=== PATIENT | female | born 1970 | race Caucasian/White ===

== ENCOUNTER 2021-05-23 15:26 | Outpatient (CLI) | payer SELFPAY ==
--- NOTE | 2021-05-23 15:34 | XR_ITS ---
WS: [id number] Exam: XR chest 2V* [id number] Date/Time of Exam: 05/23/2021 3:34 PM Reason For Exam: COUGHING Comparison 06/20/2015. Findings: The lungs are clear and fully expanded. Costophrenic angles are sharp. No infiltrates. Bronchovascula r relief appears normal. Cardiac silhouette is unremarkable. Bony elements are intact. XR/XR chest 2V* [id number] IMPRESSION: Unremarkable chest radiograph.
== END 2021-05-23 15:27 | disposition home or self-care (01) ==
PROVIDERS: PCP Nurse Practitioner Family; Visit Provider Nurse Practitioner Family
DX: R05.9 Cough, unspecified (principal)
CPT/HCPCS: 71046

== ENCOUNTER 2022-09-19 18:29 | Emergency (ER) | payer SELFPAY ==
[2022-09-19 18:49] VITALS: BMI 51.0
[2022-09-19 18:57] VITALS: BP 136/83; PULSE 84; RESP 18; TEMP 36.8; O2SAT 98
[2022-09-19 19:03] LABS: Basophils # 0.1 10^3/uL (0.0-0.1); Basophils % 0.5 %; Eosinophils # 0.6 10^3/uL (0.0-0.8); Eosinophils % 4.4 %; Hematocrit 45.3 % (37.0-47.0); Hemoglobin 14.4 g/dL (11.5-15.3); Lymphocytes # 2.3 10^3/uL (0.8-4.8); Lymphocytes % 15.4 %; Mean Corpuscular HGB Conc 31.8 g/dL (30.0-36.0); Mean Corpuscular Hemoglobin 26.9 pg (28.0-34.0); Mean Corpuscular Volume 84.5 fl (81-99); Mean Platelet Volume 10.2 fL (7.4-10.4); Monocytes # 0.7 10^3/uL (0.2-0.9); Monocytes % 4.6 %; Neutrophils # 10.88 10^3/uL (1.8-7.7); Nucleated Red Blood Cells % 0 %; Platelet Count 254 10^3/cmm (130-400); Red Blood Count 5.36 10^6/uL (4.1-5.3); Red Cell Distribution Width 16.1 % (12.1-15.1); White Blood Count 14.7 10^3/uL (4.0-10.0)
[2022-09-19 19:21] LABS: Alanine Aminotransferase 22 U/L (0-33); Albumin Level 3.8 g/dL (3.5-5.2); Alkaline Phosphatase 104 U/L (35-105); Anion Gap 13.2 (5-19); Aspartate Amino Transferase 13 U/L (0-32); Blood Urea Nitrogen 14 mg/dL (6-20); Calcium 8.5 mg/dL (8.5-10.5); Carbon Dioxide 25 mmol/L (22-29); Chloride 105 mmol/L (98-107); Glomerular Filtration Rate 106.3 mL/min (90-130); Glucose 132 mg/dL (65-115); Lipase 17 U/L (13-60); Osmolality Calculated 290 mOsm/kg (285-295); Potassium 4.2 mmol/L (3.5-5.1); Sodium 139 mmol/L (136-145); Total Bilirubin 0.3 mg/dL (0.15-1.2); Total Protein 6.8 g/dL (6.6-8.7)
[2022-09-19 19:50] VITALS: BP 150/84; PULSE 83; RESP 16; O2SAT 95
--- NOTE | 2022-09-19 20:00 | CTR_ITS ---
PROCEDURE INFORMATION: Exam: CT Abdomen And Pelvis With Contrast Exam date and time: 09/19/2022 8:09 PM Age: 51 years old Clinical indication: Abdominal pain; Generalized; Prior surgery; Surgery date: 6+ months; Surgery type: Two ; Additional info: Abd pain, pelvic pain TECHNIQUE: Imaging protocol: Computed tomography of the abdomen and pelvis with contrast. Radiation optimization: All CT scans at this facility use at least one of these dose optimization techniques: automated exposure control; mA and/or kV adjustment per patient size (includes targeted exams where dose is matched to clinical indication); or iterative reconstruction. Contrast material: OMNI 350; Contrast volume: 100 ml; Contrast route: INTRAVENOUS (IV); REPORTING DATA: Count of CT and Cardiac NM exams in prior 12 months: This patient has received 0 known CTs and 0 known cardiac nuclear medicine studies in the 12 months prior to the current study. COMPARISON: US gall bladder [id number] 07/30/2016 1:31 PM RADIATION DOSE METRICS: Total DLP (mGy-cm): 1204.83 FINDINGS: Lungs: Calcified granuloma in the right lower lobe. Liver: Normal. No mass. Gallbladder and bile ducts: Partially contracted gallbladder with 8 mm calcified stone in the gallbladder neck. No bile duct dilatation. Pancreas: Normal. No ductal dilation. Spleen: Normal. No splenomegaly. Adrenal glands: Normal. No mass. Kidneys and ureters: Left renal cyst, Hounsfield units less than 20. Additional hypodensities in the left kidney are too small to characterize but are most likely cysts. No follow-up imaging is recommended. The kidneys are otherwise unremarkable. No calculus or hydronephrosis. Stomach and bowel: Mild diverticulosis of the distal colon. No diverticulitis. The stomach and small bowel are unremarkable. Appendix: The appendix is visualized and is normal. Intraperitoneal space: Unremarkable. No free air. No significant fluid collection. Vasculature: Unremarkable. No abdominal aortic aneurysm. Lymph nodes: Unremarkable. No enlarged lymph nodes. Urinary bladder: Air-fluid level in the urinary bladder, consistent with recent catheterization. No wall thickening. Reproductive: scar in the lower anterior uterine wall. The ovaries are unremarkable. Bones/joints: Unremarkable. No acute fracture. Soft tissues: Small fat containing umbilical hernia. CT/CT abdomen pelvis w con* [id number] IMPRESSION: 1. No acute findings. 2. Diverticulosis of the colon without diverticulitis. 3. 8 mm calcified stone in the gallbladder neck. COMMENTS: Consistent with the [employer] [place] [employer]'s Incidental Findings Committee white paper (J Am Eirc Radiol 2018): Any incidental renal lesion less than 1 cm or classified as too small to characterize, or any incidental cystic renal lesion characterized as simple-appearing, is likely benign. No follow-up imaging is recommended for these lesions per consensus recommendations based on imaging criteria.
--- NOTE | 2022-09-19 20:00 | W.ED.FEMALGU ---
HPI - Female Genitourinary General: Chief complaint: Urogenital-Female Stated complaint: Bladder Pain\N\V Time Seen by Provider: 09/19/22 19:49 History of Present Illness: Patient presents to the ER with abdominal pain, bladder pressure with possible urinary retention, ribbonlike stools. Always has been going on for some time but appear to be getting worse. Patient does have a history of diverticulitis with abscess and she says this feels somewhat similar. MD elicited complaint: other (Abdominal pelvic pain) Onset (ago): day(s) Location of symptoms: suprapubic Severity: moderate Female Urogenital Radiation: Non-Radiating Quality of pain: cramping, dull and aching Consistency: constant Vaginal discharge: none Vaginal bleeding: none Urinary symptoms: Difficulty Urinating and Dysuria Exacerbating factors: none Relieving factors: none Associated symptoms: Reports abdominal pain; Deny headache(s) Treatment prior to arrival: none Review of Systems General: Reports: 10 or more systems reviewed and unremarkable except in HPI and below Const: Denies: fever(s) or chills Eyes: Denies: change in vision ENMT: Denies: throat pain or enlarged tonsils Card: Denies: chest pain or palpitations Resp: Denies: dyspnea, productive cough or non-productive cough GI: Reports: abdominal pain : Reports: dysuria, urinary hesitancy and dribbling Musc: Denies: neck pain or back pain Skin/Breast: Denies: rash or pruritus Neuro: Denies: headache(s) or numbness in extremities Psych: Denies: anxiety or depression Endo: Denies: polyuria or polydipsia Physical Exam Const: COMMON NORMALS: no acute distress, patient oriented x3, no limitations, healthy appearing, alert and well nourished HENMT: COMMON NORMALS: normocephalic, atraumatic, hearing grossly normal bilaterally, external ears normal, Normal external nose present and moist oral mucous membranes HEAD & SCALP: normocephalic and atraumatic NOSE: Normal external nose present EXTERNAL EAR: Yes external ears normal Neck/C-Spine: COMMON NORMALS: full ROM, no lymphadenopathy, supple, no meningeal signs, no JVD and Thyroid normal THYROID: Thyroid normal Chest: COMMONS NORMALS: normal inspection of the chest and normal palpation of entire chest wall Resp: COMMON NORMALS: normal respiratory effort, No retractions, No use of accessory muscles and clear to auscultation bilaterally AUSCULTATION: clear to auscultation bilaterally Cardio: COMMON NORMALS: no JVD, regular rate, regular rhythm, S1 normal heart sound present and S2 normal heart sound present RATE: regular rate RHYTHM: regular rhythm HEART SOUNDS: S1 normal heart sound present and S2 normal heart sound present GI: COMMON NORMALS: Normal to inspection, nondistended, normoactive bowel sounds present, Soft to palpation, No hepatosplenomegaly present and no masses PALPATION: Yes Soft to palpation, Yes Tenderness to palpation present (GI) (Lower abdomen suprapubic region) and Yes No hepatosplenomegaly present Extremity: COMMON NORMALS: normal to inspection Neuro: COMMON NORMALS: patient oriented x3, CN's II-XII intact bilaterally, moves all extremities, no focal motor deficits and no sensory deficits noted SENSORIUM/ORIENTATION: Yes alert MENINGEAL SIGNS: Yes no meningeal signs Course Vital Signs: Vital signs: Vital Signs Temperature 98.2 F 09/19/22 18:57 Pulse Rate 83 09/19/22 19:50 Respiratory Rate 16 09/19/22 19:50 Blood Pressure 150/84 09/19/22 19:50 Pulse Oximetry 95 09/19/22 19:50 Oxygen Delivery Me thod 09/19/22 19:50 MDM - Female Medical Decision Making Patient presents to the ER with complaints of low abdominal pain, states she has a history of kidney stones, also has had ribbonlike stool, as well as increased urgency when urinating. Patient is in no acute distress during the exam. After physical exam lab work was examined that showed a white count of 14.7 thousand, urinalysis showed 3+ blood, 2+ leukocyte esterase, greater than 100 urine white blood cells. And CT was essentially benign discussed with patient that she has a pretty significant urinary tract infection that could be irritating her pelvic region. Patient will be placed on antibiotics and discharged home. Patient should follow-up with her primary care physician in the next week to discuss her ribbonlike stools as this may be indicative of something different. Differential Diagnosis Likely abdominal pain, constipation, diverticulitis and endometriosis Medical Records I reviewed the patient's medical records. Lab Data I reviewed the patient's lab results. 09/19/22 18:56 09/19/22 18:56 Radiology Impressions Abdomen/Pelvis CT 09/19/22 20:00 IMPRESSION: 1. No acute findings. 2. Diverticulosis of the colon without diverticulitis. 3. 8 mm calcified stone in the gallbladder neck. COMMENTS: Consistent with the [employer]'s Incidental Findings Committee white paper (J Am Eric Radiol 2018): Any incidental renal lesion less than 1 cm or classified as too small to characterize, or any incidental cystic renal lesion characterized as simple-appearing, is likely benign. No follow-up imaging is recommended for these lesions per consensus recommendations based on imaging criteria. Laboratory Results WBC 14.7 10^3/uL (4.0-10.0) H 09/19/22 18:56 RBC 5.36 10^6/uL (4.1-5.3) H 09/19/22 18:56 Hgb 14.4 g/dL (11.5-15.3) 09/19/22 18:56 Hct 45.3 % (37.0-47.0) 09/19/22 18:56 MCV 84.5 fl (81-99) 09/19/22 18:56 MCH 26.9 pg (28.0-34.0) L 09/19/22 18:56 MCHC 31.8 g/dL (30.0-36.0) 09/19/22 18:56 RDW 16.1 % (12.1-15.1) H 09/19/22 18:56 Plt Count 254 10^3/cmm (130-400) 09/19/22 18:56 MPV 10.2 fL (7.4-10.4) 09/19/22 18:56 Neut % (Auto) 74.0 % 09/19/22 18:56 Lymph % (Auto) 15.4 % 09/19/22 18:56 [place] % (Auto) 4.6 % 09/19/22 18:56 Eos % (Auto) 4.4 % 09/19/22 18:56 Baso % (Auto) 0.5 % 09/19/22 18:56 Neut # (Auto) 10.88 10^3/uL (1.8-7.7) H 09/19/22 18:56 Lymph # (Auto) 2.3 10^3/uL (0.8-4.8) 09/19/22 18:56 [place] # (Auto) 0.7 10^3/uL (0.2-0.9) 09/19/22 18:56 Eos # (Auto) 0.6 10^3/uL (0.0-0.8) 09/19/22 18:56 Baso # (Auto) 0.1 10^3/uL (0.0-0.1) 09/19/22 18:56 Nucleated RBC % (auto) 0 % 09/19/22 18:56 Nucleated RBCs # 0.0 /100WBC 09/19/22 18:56 Sodium 139 mmol/L (136-145) 09/19/22 18:56 Potassium 4.2 mmol/L (3.5-5.1) 09/19/22 18:56 Chloride 105 mmol/L (98-107) 09/19/22 18:56 Carbon Dioxide 25 mmol/L (22-29) 09/19/22 18:56 Anion Gap 13.2 (5-19) 09/19/22 18:56 BUN 14 mg/dL (6-20) 09/19/22 18:56 Creatinine 0.6 mg/dL (0.5-0.9) 09/19/22 18:56 GFR Calculation 106.3 mL/min (90-130) 09/19/22 18:56 Glucose 132 mg/dL (65-115) H 09/19/22 18:56 Calculated Osmolality 290 mOsm/kg (285-295) 09/19/22 18:56 Calcium 8.5 mg/dL (8.5-10.5) 09/19/22 18:56 Total Bilirubin 0.3 mg/dL (0.15-1.2) 09/19/22 18:56 AST 13 U/L (0-32) 09/19/22 18:56 ALT 22 U/L (0-33) 09/19/22 18:56 Alkaline Phosphatase 104 U/L (35-105) 09/19/22 18:56 Total Protein 6.8 g/dL (6.6-8.7) 09/19/22 18:56 Albumin 3.8 g/dL (3.5-5.2) 09/19/22 18:56 Globulin 3.0 g/dL (1.3-4.6) 09/19/22 18:56 Lipase 17 U/L (13-60) 09/19/22 18:56 Urine Color Yellow (Yellow) 09/19/22 19:38 Urine Appearance Sl hazy (CLEAR) A 09/19/22 19:38 Urine pH 5 (5-7) 09/19/22 19:38 Ur Specific [place] 1.025 (1.005-1.030) 09/19/22 19:38 Urine Protein Neg (Negative) 09/19/22 19:38 Urine Glucose (UA) Norm (Normal) 09/19/22 19:38 Urine Ketones Negative (Negative) 09/19/22 19:38 Urine Blood 3+ (Negative) H 09/19/22 19:38 Urine Nitrate Negative (Negative) 09/19/22 19:38 Urine Bilirubin Neg (Negative) 09/19/22 19:38 Urine Urobilinogen Norm mg/dL (Negative) 09/19/22 19:38 Ur Leukocyte Esterase 2+ (Negative) H 09/19/22 19:38 Urine RBC 10-15 /hpf (0-2) H 09/19/22 19:38 Urine WBC >100 /hpf (0-5) H 09/19/22 19:38 Ur Squamous Epith Cells 5-10 /hpf (0-5) H 09/19/22 19:38 Amorphous Sediment Not Reportable 09/19/22 19:38 Urine Bacteria 1+ /hpf (NONE) H 09/19/22 19:38 Discharge Plan Discharge Patient Disposition: Home Clinical Impression: Urinary tract infection, Abdominal pain, Change in stool caliber Condition: Stable Prescriptions: New ciprofloxacin HCl [Cipro] 500 mg tablet 500 mg PO Q12H Qty: 20 0RF Discharge Orders: Discharge ED (Routine); Ordered 09/19/22 Ordered By: Christian Waters Patient Instructions: Abdominal Pain (ED), Urinary Tract Infection - Women Activity Restrictions/Additional Instructions: Finish all antibiotics as directed. Please follow-up with your family practice physician within the next 1 week. Further evaluation and treatment may be needed because of your change in stool. Coding Level of Care Code ED Easement Worker for Misty Herr
[2022-09-19] MEDS: iohexol 350 mg/mL 500 mL Btl (per mL) IV (20:11)
[2022-09-19 20:12] LABS: Add Urine Microscopic? YES; Bilirubin Urine Neg (Negative); Blood Urine 3+ (Negative); Glucose Urine UA Norm (Normal); Ketones Urine Negative (Negative); Leukocyte Esterase Urine 2+ (Negative); Nitrate Urine Negative (Negative); Protein Urine Neg (Negative); Specific Gravity, Urine 1.025 (1.005-1.030); Urine Appearance SL Hazy (CLEAR); Urine Color Yellow (Yellow); Urobilinogen Urine Norm (Negative); pH Urine 5 (5-7)
[2022-09-19 20:13] LABS: Bacteria Urine 1+ /hpf; WBC Urine >100 /hpf (0-5)
[2022-09-19 20:14] LABS: Add Urine Culture? Yes
[2022-09-19] MEDS: ciprofloxacin 500 mg Tablet PO (21:37)
[2022-09-19 21:39] VITALS: PULSE 89; O2SAT 99
--- NOTE | 2022-09-26 13:52 | DCPLANNER ---
software design manager called patient due to no primary care physician - patient stated that she has a physician
== END 2022-09-19 21:39 | disposition home or self-care (01) ==
PROVIDERS: Emergency Medicine; Emergency Provider Emergency Medicine
DX: N39.0 Urinary tract infection, site not specified (principal); R19.5 Other fecal abnormalities; K57.30 Diverticulosis of large intestine without perforation or abscess without bleeding
CPT/HCPCS: 36415; 74177; 80053; 81001; 83690; 85025; 87077; 87086; 87186; 99284; Q9967

== ENCOUNTER 2023-08-06 19:30 | Outpatient (CLI) | payer OTHER, SELFPAY | END 2023-08-06 19:31 | disposition home or self-care (01) | LOC: SLEEP 08-07 12:20 | PROVIDERS: Visit Provider Nurse Practitioner Family | DX: G47.33 Obstructive sleep apnea (adult) (pediatric) (principal); R09.02 Hypoxemia; R40.0 Somnolence | CPT/HCPCS: G0399 ==

== ENCOUNTER → 2023-08-14 15:32 | Outpatient (BNVA) | payer OTHER, SELFPAY | PROVIDERS: Referring Provider Nurse Practitioner Family; Visit Provider Nurse Practitioner Women's Health | DX: N93.9 Abnormal uterine and vaginal bleeding, unspecified (principal); Z12.4 Encounter for screening for malignant neoplasm of cervix | CPT/HCPCS: 85025; 87624 ==

== ENCOUNTER → 2023-08-19 13:30 | Outpatient (BNVA) | payer OTHER, SELFPAY | PROVIDERS: Visit Provider Nurse Practitioner Women's Health | DX: N93.9 Abnormal uterine and vaginal bleeding, unspecified (principal); D25.9 Leiomyoma of uterus, unspecified | CPT/HCPCS: 76830 ==

== ENCOUNTER → 2023-09-19 10:35 | Outpatient (BNVA) | payer OTHER, SELFPAY | PROVIDERS: Visit Provider Nurse Practitioner Women's Health | DX: N93.9 Abnormal uterine and vaginal bleeding, unspecified (principal) | CPT/HCPCS: 88305 ==

== ENCOUNTER → 2024-03-17 10:39 | Outpatient (BNVA) | payer OTHER, SELFPAY | PROVIDERS: PCP Nurse Practitioner Family; Visit Provider Student in an Organized Health Care Education/Training Program | DX: M25.562 Pain in left knee (principal); M25.561 Pain in right knee | CPT/HCPCS: 73560; 73565 ==

== ENCOUNTER 2024-04-22 08:24 | Day surgery (SDC) | payer OTHER, SELFPAY ==
[2024-04-22] VITALS (10 sets, daily range): BP systolic 121–158; BP diastolic 64–84; PULSE 68–79; RESP 16–48; TEMP 36.1–36.4; O2SAT 95–100; BMI 50.8
--- NOTE | 2024-04-22 09:06 | P.HP_ITS ---
Same Day Surgery H&P Indication for Procedure/HPI DATE OF PROCEDURE: April 22, 2024 CHIEF COMPLAINT/INDICATIONFOR SURGICAL PROCEDURE: Left knee lateral meniscus tear PREOP DIAGNOSIS: Left knee lateral meniscus tear, ACL tear PLANNED PROCEDURE: Operation Date: 04/22/24 10:15 Proposed Procedures p Knee Arthroscopy Knee Arthroscopy w/ partial Lateral Menisectomy versus repair(Left) - Derrell Quezada DO Medications/Allergies* Home Medications Medication Instructions Recorded Confirmed Type cyclobenzaprine 5 mg tablet 5 mg PO TID PRN Muscle Spasm 03/17/24 04/22/24 History Allergies/Adverse Reactions Allergy/AdvReac Type Severity Reaction Status Date / Time acetaminophen [From Percocet] Allergy Intermediate ALGY-Hives Verified 04/22/24 09:00 oxycodone [From Percocet] Allergy Intermediate ALGY-Hives Verified 04/22/24 09:00 Pertinent History/Comorbid Conditions* Medical History (Updated 04/07/24 @ 07:36 by Derrell Quezada DO) Tobacco abuse Pre-diabetes No pertinent past medical history neghx: htn,dm,dvt/pe PCP: Ginger Cuevas at [facility] in [place] Hypothyroidism Surgical History (Updated 08/14/23 @ 14:53 by Jina Perrin APN, CAN) H/O section 1991 1994 H/O tubal ligation (~1994) performed at the time of csection Family History (Updated 08/14/23 @ 14:32 by Jennifer Guzman LPN) Colon cancer Grandmother Pancreatic cancer Father Grandmother Diabetes Father Grandmother Grandfather Heart disease Father Breast cancer Family/Other maternal aunt Lung cancer Mother Hypertension Father Denies family history of Ovarian cancer Prostate cancer Hyperlipidemia Uterine cancer Thyroid disease Stroke Social History Smoking and tobacco/nicotine status: current every day tobacco/nicotine user Pertinent Exam Findings alert, oriented x 3, operative site marked and procedure specific exam findings Please refer to detailed orthopedic examination on 03/17/2024 listed below: Left Knee Exam: -ROM 0-115 degrees -Medial joint line tenderness -Significant lateral joint line tenderness -Positive Anterior Drawer -Pain with Ric's as well as soft end point -Palpable joint effusion -Positive Judi's -Mild retropatellar tenderness to palpation -No appreciable crepitus Recommendations Surgery/Procedure today Other Plans: Plan proceed to the OR today for left knee diagnostic and surgical arthroscopy with partial lateral meniscectomy versus repair. Patient at this point in time has thought about the ACL and at this point time she would like to just observe this and treat this conservatively and not undergo any type of ACL reconstruction we will address her meniscal pathology and any other intra- articular pathology and not perform any type of ACL reconstruction after we have discussed this in detail and through shared decision making she would like to not proceed with any procedure with any reconstruction at this time. Understands she might need a brace after and during this recovery process. Will which we detailed the ins and outs procedure risk benefits complication alternatives surgery and through shared decision-making elects proceed with surgical intervention. All questions been answered at this time. Coding Level of Care Code Acute Code for Misty Herr
[2024-04-22 09:08] LABS: OR HCG Qualitative Urine Negative (Negative)
[2024-04-22] MEDS: scopolamine 1.5 Patch 1 PATCH TRANSDERMA (09:14)
--- NOTE | 2024-04-22 09:22 | ANES.PREANE2 ---
Pre-Anesthetic Assessment Height/Weight: Height 1.52 m Temp Pulse Resp BP Pulse Ox O2 Del Method 97.2 F L 79 48 H 158/82 96 Room Air 04/22/24 08:53 04/22/24 08:53 04/22/24 08:53 04/22/24 08:53 04/22/24 08:53 04/22/24 08:53 Preop Diagnosis: Left knee lateral meniscus tear, ACL tear Operation Date: 04/22/24 10:15 Proposed Procedures p Knee Arthroscopy Knee Arthroscopy w/ partial Lateral Menisectomy versus repair(Left) - Derrell Quezada DO Familial anesthetic complications: None Was Beta Masoud taken within 24 hours: N/A Was Clonidine taken within 24 hours: N/A Last intake: Intake Last Liquid Date 04/21/24 Last Liquid Time 17:00 Last Solid Date 04/21/24 Last Solid Time 17:00 Social No alcohol and No tobacco Exam alert, oriented x 3, clear to auscultation bilaterally and regular rate & rhythm Airway Mallampati: Class IV Dentition: other (missing teeth) Pulmonary Sleep Apnea (severe) Metabolic Diabetes Mellitus, Morbid Obesity and Thyroid Disease Anesthetic Plan ASA status: 3 Anesthesia: General Risk of > 500 ml blood loss (7ml/kg in children): No Medications/Allergies Home Medications Medication Instructions Recorded Confirmed Last Taken Type cyclobenzaprine 5 mg tablet 5 mg PO TID PRN Muscle Spasm 03/17/24 04/22/24 04/21/24 History Allergies Allergy/AdvReac Type Severity Reaction Status Date / Time acetaminophen [From Percocet] Allergy Intermediate ALGY-Hives Verified 04/22/24 09:00 oxycodone [From Percocet] Allergy Intermediate ALGY-Hives Verified 04/22/24 09:00 [facility] Anesthesia Medical History Tobacco abuse Pre-diabetes No pertinent past medical history neghx: htn,dm,dvt/pe PCP: Ginger Cuevas at [facility] in [place] Hypothyroidism Surgical History H/O section 1991 1994 H/O tubal ligation (~1994) performed at the time of csection Family History Mother Lung cancer Father Pancreatic cancer Heart disease Hypertension Diabetes Grandmother Pancreatic cancer Colon cancer Diabetes Family/Other Breast cancer maternal aunt Grandfather Diabetes Denies family history of Ovarian cancer Prostate cancer Hyperlipidemia Uterine cancer Thyroid disease Stroke Social History Smoking and tobacco/nicotine status: current every day tobacco/nicotine user Data Anesthesia Cardiac Studies: No Data to Display
[2024-04-22] MEDS: acetaminophen 1,000 MG/100 ML PIGGYBACK 400 MG IV (09:30)
[2024-04-22] MEDS: sodium chloride 0.9% 1,000 ML 30 ML IV (09:38)
[2024-04-22] MEDS: ketorolac 30 mg/mL INJ IVP (09:45)
[2024-04-22] MEDS: ceFAZolin 2,000 MG in sodium chloride 0.9% (plus) 50 ML 100 MG IV (09:59)
[2024-04-22] MEDS: lidocaine-epi 1% 20 mL INJ 40 ML INJECTION (10:39)
--- NOTE | 2024-04-22 11:09 | W.PM.BPON ---
Date of Procedure: 04/22/2024 Surgeon: Derrell Quezada DO Sandwich Machine Operator(s): None Procedure(s) performed: Left knee diagnostic and surgical arthroscopy with partial lateral meniscectomy Left knee diagnostic and surgical arthroscopy with extensive synovectomy Left knee diagnostic and surgical arthroscopy with patellofemoral chondroplasty Left knee diagnostic and surgical arthroscopy with ACL debridement Findings of the procedure(s): Patient found to have high-grade tear of the ACL there are some fibers intact patient did have a complex tear of the lateral meniscus and underwent partial lateral meniscectomy as well as extensive synovectomy did have signs of chondromalacia most pronounced in the patellofemoral space underwent chondroplasty in this area. Patient Toller procedure well without issues or complications taken back to PACU in stable condition. Estimated blood loss: 2 mL Specimen(s) removed: None Post-operative diagnosis: Left knee high-grade ACL tear, lateral meniscus tear, extensive synovitis, chondromalacia of the left knee
--- NOTE | 2024-04-22 11:10 | P.OP_ITS ---
Operative Report Date of procedure: April Surgeon: Derrell Quezada DO Procedure: Preoperative diagnosis: Left knee lateral meniscus tear, ACL tear Post-op diagnosis: Left knee high-grade partial ACL tear, lateral meniscus tear, extensive synovitis, chondromalacia of the left knee Procedure done: Left knee diagnostic and surgical arthroscopy with partial lateral meniscectomy Left knee diagnostic and surgical arthroscopy with extensive synovectomy Left knee diagnostic and surgical arthroscopy with patellofemoral chondroplasty Left knee diagnostic and surgical arthroscopy with ACL debridement Surgeon: Derrell Quezada DO Estimated blood loss: 2 mL Tourniquet: No tourniquet was used IV fluids: 800 mL Complications: None Findings: See operative report narrative Condition: stable Disposition: same day Brief History: Patient is a 53-year-old female with left?knee?pain.? Patient has failed conservative treatment who has been worked up for left?knee?pain in the outpatient setting. MRI findings consistent with tear of the lateral meniscus and high-grade tear ACL. talked in the office about treatment options patient would like to proceed with a left knee diagnostic and surgical arthroscopy with partial lateral meniscectomy versus repair. We talked in detail and she wishes not to have anything done as far as any reconstruction with the ACL and would be okay with just debridement if necessary. Patient understand the ins and outs of the procedure the risk benefits complication alternatives to treatment options.? Understanding risk of surgery patient agree to proceed with surgical intervention.? Patient understand this may not provide patient with complete symptomatic relief of? pain as patient does have some underlying arthritis.? Understanding this and patient agree to proceed with surgical intervention all questions answered. Procedure: Patient seen and evaluated in the preoperative holding area.? Consent was reviewed and signed with patient.? Correct extremity was then marked.? Patient seen evaluated Anesthesia Department once cleared for surgery patient was taken back to the operative suite.? Patient was transported onto the OR table in supine position.? All bony prominences well-padded patient was appropriate secured to the bed.? Once appropriately anesthetized a nonsterile tourniquet was applied to the left thigh.? The right lower extremity was then prepped and draped in standard orthopedic fashion.? Final timeout performed.? Patient received appropriate preoperative antibiotics. Patient received local anesthetic of lidocaine with epinephrine into the joint as well as around the portal sites.? No tourniquet was inflated A standard 2 portal vertical incision diagnostic and surgical arthroscopy of the left?knee?was performed in standard fashion.? Small stab incision made in the inferolateral portal introduced trocar and arthroscope into the suprapatellar pouch.? Suprapatellar pouch was subsequently visualized and found to have significant synovitis but no loose bodies.? Patient had noticeable significant inflamed infrapatellar fat pad and thickening hypertrophic within the corey llofemoral compartment.? ?The medial gutter was free of loose bodies I then introduced the arthroscope into the medial compartment.? Within the medial compartment I then established my inferior medial working portal utilizing spinal needle outside in technique.? Once established I then visualized our articular cartilage of the medial compartment with a valgus stress.? Patient was found to have grade 1 chondromalacia throughout the medial compartment.? Next I inspected the meniscus.? There is no evidence of meniscus tear and the meniscal root was intact. Next, I then performed a synovectomy of the medial compartment.? This completed medial compartment work. Next a introduced the arthroscope to the intercondylar notch.? PCL was intact. There was what appeared to be a high-grade partial tear of the ACL but overall fibers were still intact I subsequently just utilized an arthroscopic shaver debride any scar tissue around the ACL just for a gentle debridement. This completed work within the intercondylar notch. Patient had significant thickening of the infrapatellar fat pad spanning into the medial and lateral compartments.? I then performed an extensive synovectomy with the arthroscopic shaver of the patellofemoral medial and lateral compartments as well as the intercondylar notch. Next I introduced the arthroscope into the lateral compartment the lateral compartment was found to have grade 2 chondromalacia.? Lateral meniscus was found t to have a complex tear from the posterior horn to the body of the lateral meniscus the root was found to be intact. At this point in time I subsequently performed a partial lateral meniscectomy as this was in the white white zone and in complex tearing pattern I subsequently utilized arthroscopic biter and arthroscopic shaver to complete my partial lateral meniscectomy. I then utilized a thermal wand to seal and Aneel the edges of the meniscus to stable meniscal tissue this completed my work in the lateral compartment. The root was intact.? Given the grade II chondromalacia there is no unstable cartilage pieces to perform chondroplasty.? This completed my work of the lateral compartment and then performed a synovectomy of the lateral compartment.? Next of the arthroscope was placed into the lateral gutter and this was free of loose bodies.? Finally I reintroduced the arthroscope into the patellofemoral compartment.? Patient's trochlear groove was found to have grade II chondromalacia of the patella was found to have 2 3 chondromalacia I then subsequently given the unstable cartilage piece on the undersurface of the patella utilized a thermal wand and arthroscopic shaver to perform a chondroplasty of the undersurface of the patella to stable articular cartilage tissue. I utilized a thermal wand to seal up the edges on this. At this point I utilized arthroscopic shaver as well as thermal wand to perform extensive synovectomy of the patellofemoral compartment. This completed my work of the patellofemoral space.? I then switch my portal sites to the medial working portal.? Completed the rest of my synovectomy and the rest of my examination arthroscopy was normal. All fluid was suctioned from the joint.? ?All instruments were withdrawn.? Portal sites were closed with interrupted nylon suture.? portal sites were then covered with with Xeroform 4 x 4's ABD Curlex and Shaggy wrap.? Patient was then subsequently awakened from anesthesia and taken to PACU in stable condition. Disposition: Patient taken to PACU in stable condition recovering well.? Will receive appropriate discharge structure as well as pain medication postoperatively as well as? DVT prophylaxis.we will have patient follow-up with us in the office in 2 weeks.? We will weightbearing as tolerated to the left lower extremity.? Patient understands and agrees with current plan.? All questions answered.
[2024-04-22] MEDS: ondansetron 2 mg/ML SDV 2 mL 4 MG IVP (11:40)
--- NOTE | 2024-04-22 12:55 | ANE.PACU2 ---
Inpatient post-anesthesia follow up: Airway intact: Yes Vital signs: Temperature 97 F Pulse Rate 69 Respiratory Rate 18 Blood Pressure 121/64 Pulse Oximetry 95 Oxygen Delivery Me thod Room Air Oxygen Flow Rate 8 Fraction of Inspir ed Oxygen Hydration adequate: Yes Nausea and vomiting: No Pain level: 1 Mental status: Baseline
== END 2024-04-22 12:58 | disposition home or self-care (01) ==
PROVIDERS: Anesthesiology; PCP Nurse Practitioner Family; Visit Provider Student in an Organized Health Care Education/Training Program
PROC: (CPT 29870; principal; 2024-04-22 10:15)
PROC: (CPT 29876; 2024-04-22 10:15)
PROC: (CPT 29876; 2024-04-22 10:15)
DX: S83.282A Other tear of lateral meniscus, current injury, left knee, initial encounter (principal); S83.512A Sprain of anterior cruciate ligament of left knee, initial encounter; X58.XXXA Exposure to other specified factors, initial encounter; M94.262 Chondromalacia, left knee; R73.03 Prediabetes; E03.9 Hypothyroidism, unspecified; F17.200 Nicotine dependence, unspecified, uncomplicated
CPT/HCPCS: 29876; 29881; 81025; J0131; J0690; J1100; J1885; J2405; J2704; J3010; J7030

== ENCOUNTER 2024-09-21 13:44 | Outpatient (CLI) | payer OTHER, SELFPAY ==
--- NOTE | 2024-09-21 13:54 | XR_ITS ---
WS: [id number] Exam: XR shoulder LT min 2V* [id number] Date/Time of Exam: 09/21/2024 1:58 PM Reason For Exam: M25.512 No fracture. The joints are preserved. Unremarkable soft tissues. XR/XR shoulder LT min 2V* [id number] IMPRESSION: 1. Negative LEFT shoulder.
== END 2024-09-21 13:45 | disposition home or self-care (01) ==
PROVIDERS: PCP Nurse Practitioner Adult Health; Visit Provider Nurse Practitioner Adult Health
DX: M25.512 Pain in left shoulder (principal)
CPT/HCPCS: 73030

== ENCOUNTER 2024-12-09 15:19 | Outpatient (RCR) | payer OTHER, SELFPAY | END 2024-12-14 23:59 | disposition home or self-care (01) | LOC: SPT 15:19 | PROVIDERS: Visit Provider Nurse Practitioner Adult Health | DX: M25.512 Pain in left shoulder (principal) | CPT/HCPCS: 97161 ==

== ENCOUNTER 2024-12-15 05:00 | Outpatient (RCR) | payer OTHER, SELFPAY | END 2025-01-14 23:59 | disposition home or self-care (01) | LOC: SPT 05:00 | PROVIDERS: Visit Provider Nurse Practitioner Adult Health | DX: M25.512 Pain in left shoulder (principal) | CPT/HCPCS: 97110 ==

== ENCOUNTER 2024-12-24 16:10 | Inpatient (IN) | payer OTHER, SELFPAY ==
--- OUTSIDE RECORDS SUMMARY | 2024-12-24 16:13 | XMS_ITS | Clinical Summary ---
Author Organization [facility] Address [address] Gonzales: Epic [place] [address] Care Team Providers Care Product Strategy Director Name Role Phone Dusty Lauretn Primary Care Provider Allergies Active Allergy Reactions Criticality Noted Date Comments Meperidine Nausea and Vomiting Low 05/03/2014 Oxycodone-Acetaminophen Itching Low 05/03/2014 Medications traMADoL (ULTRAM) 50 mg tablet Take 100 mg by mouth every 6 hours as needed for Pain. 5 Active ondansetron (ZOFRAN) 4 mg Tablet Take 4 mg by mouth every 8 hours as needed for Nausea/Emesis. 5 Active SUMAtriptan (IMITREX) 50 mg tablet Take 50 mg by mouth every 2 hours as needed for Headaches may repeat in 2 hours; max dose 200mg in 24 hours . 5 Active HYDROcodone-frankie taminophen (NORCO) 5-325 mg tablet Take 1 Tab by mouth every 4 hours as needed for Pain, Moderate. 5 Active omeprazole (PriLOSEC) 20 mg Capsule, Delayed Release(E.C.) Take 20 mg by mouth daily. 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 Gender Identity Not on file Sexual Orientation Not on file Last Filed Vital Signs Vital Sign Reading Time Taken Comments Blood Pressure 121/69 10/27/2014 2:30 PM CDT Pulse 78 10/27/2014 2:12 PM CDT Temperature 36.6 C (97.9 F) 10/27/2014 2:12 PM CDT Respiratory Rate 23 10/27/2014 3:26 PM CDT Oxygen Saturation - - Inhaled Oxygen Concentration - - Weight 95.1 kg (209 lb 9.6 oz) 10/27/2014 2:12 P M CDT Height 154.9 cm (5' 1 ) 10/27/2014 2:12 PM CDT Body Mass Index 39.6 10/27/2014 2:12 PM CDT Plan of Treatment Health Maintenance Due Date Last Done Comments DTAP/TDAP/TD VACCINES (1 - Tdap) 10/27/1991 HEPATITIS B VACCINES (1 of 3 - 19+ 3-dose series) 10/27/1991 09/21/2002, 07/13/2002 HPV/Cotest (21-29) 1993 CERVICAL CANCER SCREENING 2002 HPV/Cotest (30-65) 2002 PAP SMEAR 2002 BREAST CANCER SCREENING 2012 COLORECTAL SCREENING 2017 Colorectal Cancer Screening 2017 FIT-DNA Q 3 years 2017 FIT/FOBT Q 1 year 2017 Flex Sig/CT Colonography Q 5 years 2017 ZOSTER VACCINE (1 of 2) 2022 INFLUENZA VACCINE (#1) 2025 Care Teams Product Strategy Director Relationship Specialty Start Date End Date Dusty Laurent PA [address] [place] [address] PCP - General Physician Senior Gamemaster 10/27/14
--- OUTSIDE RECORDS SUMMARY | 2024-12-24 16:13 | XMS_ITS | Encounter Summary ---
Author Organization [facility] Address [address] [place] [address] Care Team Providers Care Nurse Orthopedic Name Role Phone Dusty Laurent Primary Care Provider Encounter Details Date Type Department Care Team (Latest Contact Info) Description 01/23/2007 Outpatient [facility] Medicine [address] [id number] Judd Flores, BLOCK MAKING MACHINE OPERATOR [address] [place] [address] Other General Medical Examination for Administrative Purposes (Primary Dx); Examination for Medicolegal Reason Social History Tobacco Use Types Packs/Day Years Used Date Smoking Tobacco: Never Assessed Comments Unknown Sex and Gender Information Value Date Recorded Sex Assigned at Not on file 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
--- OUTSIDE RECORDS SUMMARY | 2024-12-24 16:13 | XMS_ITS | Clinical Summary ---
Author Organization [facility] Address [address] [place] [address] Phone Care Team Providers Care Senior Data Architect Name Role Phone Dusty Laurent Primary Care Provider Allergies Active Allergy Reactions Criticality Noted Date Comments Meperidine Nausea and Vomiting Low 05/03/2014 Oxycodone-Acetaminophen Itching Low 05/03/2014 Medications omeprazole (PRILOSEC) 20 mg Capsule, Delayed Release(E.C.) Take 20 mg by mouth daily. Active traMADol (ULTRAM) 50 mg tablet Take 100 mg by mouth every 6 hours as needed for Pain. Active SUMAtriptan (IMITREX) 50 mg tablet Take 50 mg by mouth every 2 hours as needed for Headaches may repeat in 2 hours; max dose 200mg in 24 hours . Active ondansetron (ZOFRAN) 4 mg Tablet Take 4 mg by mouth every 8 hours as needed for Nausea/Emesis. Active HYDROcodone-frankie taminophen (NORCO) 5-325 mg tablet Take 1 Tab by mouth every 4 hours as needed for Pain, Moderate. 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 Gender Identity Not on file Sexual Orientation Not on file Last Filed Vital Signs Vital Sign Reading Time Taken Comments Blood Pressure 121/69 10/27/2014 2:30 PM CDT Pulse 78 10/27/2014 2:12 PM CDT Temperature 36.6 C (97.9 F) 10/27/2014 2:12 PM CDT Respiratory Rate 23 10/27/2014 3:26 PM CDT Oxygen Saturation 99% 10/27/2014 3:26 PM CDT Inhaled Oxygen Concentration - - Weight 95.1 [...] of 2) 2022 INFLUENZA VACCINE (#1) [address] [place] [address] [employer] Care Teams Senior Data Architect Relationship Specialty Start Date End Date Dusty Laurent PA PCP - General Physician Lease Attendant 10/27/14
[2024-12-24 16:18] VITALS: BP 148/83; PULSE 101; RESP 15; TEMP 37.4; O2SAT 95; BMI 48.4
--- NOTE | 2024-12-24 16:50 | ED_ITS ---
HPI - Abdominal Pain 2 General: Chief Complaint: Abdominal Pain Stated Complaint: fever,n,v,no bm for days, abd pain Time Seen by Provider: 12/24/24 16:46 History of Present Illness: 54-year-old female with history of diver ticulitis/diverticulosis, obesity and hypothyroidism presents emergency room with pelvic pain, Nausea vomiting and fever with no bowel movements for couple days now. She had a but no other abdominal surgeries in the past. Afebrile on presentation but mildly tachycardic. No trouble urinating she says. Related Data Previous Rx's ?Medication ?Instructions ?Recorded cyclobenzaprine 5 mg tablet 5 mg PO TID PRN Muscle Spa sm 7 04/22/24 days #21 tabs Allergies Allergy/AdvReac Type Severity Reaction Status Date / Time acetaminophen (From Percocet) Allergy Intermediate ALGY-Hives Verified 06/02/24 10:35 oxycodone (From Percocet) Allergy Intermediate ALGY-Hives Verified 06/02/24 10:35 diphenhydramine (From Allergy Unknown Verified 12/24/24 16:32 Benadryl) Review of Systems 2 Narrative: Constitutional symptoms: Negative except as documented in HPI. Skin symptoms: Negative except as documented in HPI. Eye symptoms: Negative except as documented in HPI. ENMT symptoms: Negative except as documented in HPI. Respiratory symptoms: Negative except as documented in HPI. Cardiovascular symptoms: Negative except as documented in HPI. Gastrointestinal symptoms: Negative except as documented in HPI. Genitourinary symptoms: Negative except as documented in HPI. Musculoskeletal symptoms: Negative except as documented in HPI. Neurologic symptoms: Negative except as documented in HPI. Psychiatric symptoms: Negative except as documented in HPI. Endocrine symptoms: Negative except as documented in HPI. PFSH ED 2 PFSH: Medical History (Updated 12/24/24 @ 19:09 by Caren Lin MD) Tobacco abuse Pre-diabetes No pertinent past medical history neghx: htn,dm,dvt/pe PCP: Ginger Cuevas at [facility] in [place] Hypothyroidism Surgical History H/O section 1991 1994 H/O tubal ligation (~1994) performed at the time of csection Family History Mother Lung cancer Father Pancreatic cancer Heart disease Hypertension Diabetes Grandmother Pancreatic cancer Colon cancer Diabetes Family/Other Breast cancer maternal aunt Grandfather Diabetes Denies family history of Ovarian cancer Prostate cancer Hyperlipidemia Uterine cancer Thyroid disease Stroke Social History Smoking and tobacco/nicotine status: current every day tobacco/nicotine user Physical Exam 2 Narrative: EXAM NARRATIVE: General: Alert, no acute distress. Skin: Warm, dry. Head: Normocephalic, atraumatic. Neck: Supple, trachea midline. Eye: Extraocular movements are intact. Ears, nose, mouth and throat: Tacky oral mucosa Cardiovascular: Regular, Normal peripheral perfusion. Respiratory: Lungs are clear to auscultation, respirations are non-labored, breath sounds are equal, Symmetrical chest wall expansion. Gastrointestinal: Soft, suprapubic abdominal tenderness, Non distended Musculoskeletal: Normal ROM, no deformity. Neurological: Alert and oriented, No focal neurological deficit observed. Psychiatric: Cooperative, appropriate mood & affect. Course 2 Vital Signs: Vital signs: Vital Signs Temperature 99.3 F 12/24/24 16:18 Pulse Rate 101 H 12/24/24 16:18 Respiratory Rate 15 12/24/24 16:18 Blood Pressure 148/83 12/24/24 16:18 Pulse Oximetry 95 12/24/24 16:18 Oxygen Delivery Me thod Room Air 12/24/24 16:18 MDM - Abdominal Pain Medical Decision Making Medical decision making: Differential diagnosis for this patient with nausea and vomiting including but not limited to and based on the above HPI, review of systems and physical exam: Urinary tract infection. Appendicitis. Cholecystitis. Colitis. small bowel obstruction. crohn's flare. pancreatitis. gastritis. peptic ulcer. cyclic vomiting. Viral illness. Influenza. COVID. Orders placed to evaluate differential diagnosis based on the above differential, HPI and physical exam Lab Review: Laboratory results were reviewed and interpreted by myself the emergency room physician. No leukocytosis. No anemia. No renal failure. CRP is quite elevated at 192. I reviewed the patient's medical record. CT of the abdomen pelvis with contrast: Severe diverticulitis of the mid sigmoid colon. No perforation or abscess formation. Small quantity of gas within the urinary bladder this is of questionable importance. Patient does have a urinary tract infection. This was reviewed and interpreted by myself the emergency room physician. I also reviewed the radiology report. Reexamination: Patient says pain medicine worked for a while but has started hurting quite a bit again. More Dilaudid is being ordered. Given elevated CRP and severity of disease I am giving her IV antibiotics and admitting for pain control and continued IV antibiotics. Assessment and plan: Diverticulitis Dehydration Urinary tract infection ?2 L normal saline bolus, IV Cipro and Flagyl. Multiple doses of Dilaudid. IV Zofran. -I discussed the patient with the hospitalist on-call who is admitting the patient. - Discussed findings and plan with patient. Answered any questions. - All laboratory values were reviewed and interpreted personally by myself, the ER physician - All imaging was reviewed and interpreted personally by myself, the ER physician. - Evaluation and treatment of this problem were appropriate in the emergency setting Lab Data 12/24/24 16:52 12/24/24 16:52 Labs/Radiology: Radiology Impressions Abdomen/Pelvis CT 12/24/24 17:37 IMPRESSION: 1. Severe diverticulitis of the mid sigmoid colon. No definitive perforation or adjacent abscess formation. 2. Small quantity of gas within the urinary bladder lumen, question recent catheterization. No identified fistula formation. 3. Hepatosplenomegaly. COMMENTS: Consistent with the [employer]'s Incidental Findings Committee white paper (J Am Eric Radiol 2018): Any incidental renal lesion less than 1 cm or classified as too small to characterize, or any incidental cystic renal lesion characterized as simple-appearing, is likely benign. No follow-up imaging is recommended for these lesions per consensus recommendations based on imaging criteria. Laboratory Results WBC 9.64 10^3/uL (3.29-11.43) 12/24/24 16:52 RBC 5.17 10^6/uL (3.85-5.65) 12/24/24 16:52 Hgb 14.00 g/dL (11.27-16.99) 12/24/24 16:52 Hct 42.9 % (36-47) 12/24/24 16:52 MCV 83.0 fl (85-98) L 12/24/24 16:52 MCH 27.1 pg (27-33) 12/24/24 16:52 MCHC 32.6 g/dL (30-55) 12/24/24 16:52 RDW 15.4 % (12.1-15.1) H 12/24/24 16:52 Plt Count 198 10^3/cmm (157-399) 12/24/24 16:52 MPV 10.8 fL (7.4-10.4) H 12/24/24 16:52 Neut % (Auto) 87.4 % 12/24/24 16:52 Lymph % (Auto) 7.7 % 12/24/24 16:52 [place] % (Auto) 3.8 % 12/24/24 16:52 Eos % (Auto) 0.3 % 12/24/24 16:52 Baso % (Auto) 0.2 % 12/24/24 16:52 Neut # (Auto) 8.42 10^3/uL (1.8-7.7) H 12/24/24 16:52 Lymph # (Auto) 0.7 10^3/uL (0.8-4.8) L 12/24/24 16:52 [place] # (Auto) 0.4 10^3/uL (0.2-0.9) 12/24/24 16:52 Eos # (Auto) 0.0 10^3/uL (0.0-0.8) 12/24/24 16:52 Baso # (Auto) 0.0 10^3/uL (0.0-0.1) 12/24/24 16:52 Nucleated RBC % (auto) 0 % 12/24/24 16:52 Nucleated RBCs # 0.0 /100WBC 12/24/24 16:52 Sodium 135 mmol/L (136-145) L 12/24/24 16:52 Potassium 3.6 mmol/L (3.5-5.1) 12/24/24 16:52 Chloride 98 mmol/L (98-107) 12/24/24 16:52 Carbon Dioxide 22 mmol/L (22-29) 12/24/24 16:52 Anion Gap 18.6 (5-19) 12/24/24 16:52 BUN 14 mg/dL (6-20) 12/24/24 16:52 Creatinine 0.7 mg/dL (0.5-0.9) 12/24/24 16:52 GFR Calculation 87.9 mL/min (90-130) L 12/24/24 16:52 Glucose 129 mg/dL (65-115) H 12/24/24 16:52 Calculated Osmolality 282 mOsm/kg (285-295) L 12/24/24 16:52 Lactic Acid 1.2 mmol/L (0.5-2.2) 12/24/24 16:52 Calcium 8.4 mg/dL (8.5-10.5) L 12/24/24 16:52 Total Bilirubin 0.7 mg/dL (0.15-1.2) 12/24/24 16:52 AST 58 U/L (0-32) H 12/24/24 16:52 ALT 91 U/L (0-33) H 12/24/24 16:52 Alkaline Phosphatase 249 U/L (35-105) H 12/24/24 16:52 C-Reactive Protein 192.7 mg/L (0.0-4.9) H 12/24/24 16:52 Total Protein 7.1 g/dL (6.6-8.7) 12/24/24 16:52 Albumin 3.6 g/dL (3.5-5.2) 12/24/24 16:52 Globulin 3.5 g/dL (1.3-4.6) 12/24/24 16:52 Lipase 12 U/L (13-60) L 12/24/24 16:52 Urine Color Dark yellow (Yellow) A 12/24/24 16:38 Urine Appearance Cloudy (CLEAR) A 12/24/24 16:38 Urine pH 5.5 (5-7) 12/24/24 16:38 Ur Specific Mcandrews 1.022 (1.005-1.030) 12/24/24 16:38 Urine Protein 2+ (Negative) A 12/24/24 16:38 Urine Glucose (UA) Negative (Normal) 12/24/24 16:38 Urine Ketones 2+ (Negative) H 12/24/24 16:38 Urine Blood 2+ (Negative) A 12/24/24 16:38 Urine Nitrate Negative (Negative) 12/24/24 16:38 Urine Bilirubin 1+ (Negative) H 12/24/24 16:38 Urine Urobilinogen 2.0 mg/dL (Negative) H 12/24/24 16:38 Ur Leukocyte Esterase 2+ (Negative) A 12/24/24 16:38 Urine RBC 0-2 /hpf (0-2) 12/24/24 16:38 Urine WBC 21-50 /hpf (0-5) H 12/24/24 16:38 Ur Squamous Epith Cells 0-5 /hpf (0-5) 12/24/24 16:38 Amorphous Sediment Not Reportable 12/24/24 16:38 Urine Bacteria None seen /hpf (NONE) 12/24/24 16:38 Hyaline Casts 1.21 /lpf 12/24/24 16:38 All radiology interpretation(s) finalized by discharge Discharge Plan Discharge Patient Disposition: Admitted As Inpatient Clinical Impression: Diverticulitis, Dehydration, Urinary tract infection Condition: Stable Coding Level of Care Code ED Laboratory Apparatus Glass Grinder for Misty Herr
[2024-12-24 17:06] LABS: Glucose Urine UA Negative (Normal); Nitrate Urine Negative (Negative); Specific Gravity, Urine 1.022 (1.005-1.030)
[2024-12-24 17:23] LABS: Hematocrit 42.9 % (36-47); Hemoglobin 14.00 g/dL (11.27-16.99); Mean Corpuscular HGB Conc 32.6 g/dL (30-55); Mean Corpuscular Hemoglobin 27.1 pg (27-33); Mean Corpuscular Volume 83.0 fl (85-98); Nucleated Red Blood Cells % 0 %; Platelet Count 198 10^3/cmm (157-399); Red Blood Count 5.17 10^6/uL (3.85-5.65); White Blood Count 9.64 10^3/uL (3.29-11.43)
[2024-12-24] MEDS: ondansetron 2 mg/ML SDV 2 mL 4 MG IVP (17:34)
[2024-12-24] MEDS: HYDROmorphone 0.5 MG/0.5 ML INJ 1 MG IM (17:34)
[2024-12-24 17:36] LABS: Alanine Aminotransferase 91 U/L (0-33); Albumin Level 3.6 g/dL (3.5-5.2); Alkaline Phosphatase 249 U/L (35-105); Anion Gap 18.6 (5-19); Aspartate Amino Transferase 58 U/L (0-32); Blood Urea Nitrogen 14 mg/dL (6-20); Calcium 8.4 mg/dL (8.5-10.5); Carbon Dioxide 22 mmol/L (22-29); Chloride 98 mmol/L (98-107); Creatinine Clr Calc Pharmacy 107.2970; Globulin 3.5 g/dL (1.3-4.6); Glucose 129 mg/dL (65-115); Lipase 12 U/L (13-60); Osmolality Calculated 282 mOsm/kg (285-295); Potassium 3.6 mmol/L (3.5-5.1); Sodium 135 mmol/L (136-145); Total Protein 7.1 g/dL (6.6-8.7)
--- NOTE | 2024-12-24 17:37 | CTR_ITS ---
PROCEDURE INFORMATION: Exam: CT Abdomen And Pelvis With Contrast Exam date and time: 12/24/2024 5:55 PM Age: 54 years old Clinical indication: Abdominal pain; Generalized; Prior surgery; Surgery date: 6+ months; Surgery type: 2 csection TECHNIQUE: Imaging protocol: Computed tomography of the abdomen and pelvis with contrast. Radiation optimization: All CT scans at this facility use at least one of these dose optimization techniques: automated exposure control; mA and/or kV adjustment per patient size (includes targeted exams where dose is matched to clinical indication); or iterative reconstruction. Contrast material: OMNIPAQUE 350; Contrast volume: 100 ml; Contrast route: INTRAVENOUS (IV); COMPARISON: CT abdomen pelvis w con* [id number] 09/19/2022 8:09 PM RADIATION DOSE METRICS: Total DLP (mGy-cm): 1132.83 FINDINGS: Liver: Liver measuring 19.5 cm in the craniocaudal dimension. Normal contour. No focal lesion. Gallbladder and biliary ducts: Gallbladder surgically absent. Pancreas: Normal. No ductal dilation. Spleen: Spleen measuring 16.3 cm long axis. No focal lesion. Adrenal glands: Normal. No mass. Kidneys and ureters: Multiple bilateral renal cysts, largest on the left measuring 3.4 cm. Renal enhancement otherwise symmetrical. No hydronephrosis or urolithiasis. Stomach and bowel: Small bowel normal without focal wall thickening or dilation. Moderate diverticulosis of the descending colon and sigmoid colon. Focal, severe mesenteric inflammation adjacent to the mid sigmoid colon with mild sigmoid wall thickening. Nonobstructive bowel gas pattern. Appendix: No evidence of appendicitis. Intraperitoneal space: See Stomach and bowel finding. Vasculature: Unremarkable. No abdominal aortic aneurysm. Lymph nodes: Unremarkable. No enlarged lymph nodes. Urinary bladder: Small quantity of gas within the urinary bladder lumen. Reproductive: Left ovarian cyst measuring 2.2 cm. Reproductive organs otherwise negative. Bones/joints: Unremarkable. No acute fracture. Soft tissues: Unremarkable. CT/CT abdomen pelvis w con* [id number] IMPRESSION: 1. Severe diverticulitis of the mid sigmoid colon. No definitive perforation or adjacent abscess formation. 2. Small quantity of gas within the urinary bladder lumen, question recent catheterization. No identified fistula formation. 3. Hepatosplenomegaly. COMMENTS: Consistent with the [employer] [employer]'s Incidental Findings Committee white paper (J Am Eric Radiol 2018): Any incidental renal lesion less than 1 cm or classified as too small to characterize, or any incidental cystic renal lesion characterized as simple-appearing, is likely benign. No follow-up imaging is recommended for these lesions per consensus recommendations based on imaging criteria.
[2024-12-24 17:39] LABS: Lactic Sepsis W/Reflex 1.2 mmol/L (0.5-2.2)
[2024-12-24] MEDS: iohexol 350 mg/mL 500 mL Btl (per mL) IV (18:05)
[2024-12-24] MEDS: cefepime 2,000 mg SDV 2000 MG IVP (18:26)
[2024-12-24] MEDS: metroNIDAZOLE IV 500 MG/100 ML PREMIX 100 MG IV (19:15)
--- NOTE | 2024-12-24 19:30 | PC.NURSE ---
this nurse went into pt room to give pt pain medication. Pt reports pain is a lot better, only 3/10 at this time. Pt wanted to hold on pain medication for now.
[2024-12-24 20:18] LABS: Procalcitonin 0.67 ng/mL (0-0.5)
[2024-12-24 20:22] LABS: Lactic Sepsis W/Reflex 0.7 mmol/L (0.5-2.2)
[2024-12-24 20:23] VITALS: BP 99/58; PULSE 98; O2SAT 98
[2024-12-24 20:29] VITALS: BP 121/75; PULSE 82; RESP 16; TEMP 36.9; O2SAT 93
[2024-12-24 20:38] VITALS: BMI 48.4
[2024-12-24] MEDS: pantoprazole 40 mg SDV IVP (20:58)
[2024-12-24] MEDS: piperacillin-tazobactam 3.375 GM in sodium chloride 0.9% (plus) 50 ML IV (20:58)
[2024-12-24] MEDS: heparin 5,000 unit/mL INJ 1 mL 5000 UNIT SUBCUT (20:58)
--- NOTE | 2024-12-24 21:00 | PM.HP ---
Providers/Chief Complaint Admitting Physician: America Benavidez MD Chief Complaint: fever,n,v,no bm for days, abd pain History of Present Illness Isadora Cervantes is a 54 year old female with a past medical history of diverticulitis with last episode 9 years ago. She presents to the emergency room today with, chief complaints of abdominal pain which has been ongoing for the last 4 to 5 days. Patient states that the pain started around Saturday in the epigastric area, she attributed this to having a viral gastroenteritis as she also had some sinus drainage at the time. She visited with her primary care provider and was given a prescription for Augmentin however her pain continued to get worse. She had 1 episode of vomiting this morning and developed a fever of 102 Fahrenheit therefore came into the emergency room. She has not had an appetite. No hematemesis or melena. She is currently constipated and last bowel movement was 2 days ago. She has not had any diarrhea during the course of this illness. CT of the abdomen and pelvis performed today showing severe diverticulitis of the colon. No definite perforation or abscess was noted. She was recommended to undergo a colonoscopy after her last episode 9 years ago but did not get 1. There is no known history of ulcerative colitis or Crohn's disease. Review of Systems General: Reports: 10 or more systems reviewed and unremarkable except in HPI and below Const: Denies: fever(s), chills or body aches Eyes: Denies: change in vision, blurry vision or photophobia ENMT: Reports: hoarseness; Denies: throat pain, enlarged tonsils, odynophagia or nasal congestion Card: Denies: chest pain, palpitations, irregular heart rhythm, edema, swelling of feet/ankles, lightheadedness, pre-syncope, dyspnea on exertion or orthopnea Resp: Denies: dyspnea, productive cough, non-productive cough, wheezing, stridor, pain on inspiration, change in phlegm color, hemoptysis or chest congestion GI: Denies: abdominal pain, nausea, vomiting, hematemesis, coffee ground emesis, dysphagia, heartburn, diarrhea, constipation, GI cramping, change in stool character, hematochezia or melena : Denies: flank pain, difficulty voiding, dysuria, urinary frequency, urinary urgency, urinary hesitancy or hematuria Musc: Denies: neck pain, back pain, extremity pain, joint swelling, joint warmth or deformity Neuro: Denies: headache(s), numbness in extremities, weakness in extremities, sensory changes, difficulty walking, frequent falls, dizziness, vertigo, behavioral changes, Slurred speech present or seizure-like activity Psych: Denies: anxiety, depression, suicidal ideation or homicidal ideation Endo: Denies: polyuria, polydipsia, tired all the time, cold intolerance or hot flashes Hollis/Lymph: Denies: easy bruising or easy bleeding Medications/Allergies Home Medications ?Medication ?Instructions ?Recorded ?Confirmed ?Last Taken ?Type amoxicillin 500 mg-potassium 1 tab PO BID 12/24/24 12/24/24 12/24/24 06:00 History clavulanate 125 mg tablet levothyroxine 25 mcg tablet 25 mcg PO DAILY 12/24/24 12/24/24 12/24/24 06:00 History metformin 500 mg tablet 500 mg PO BIDWM 12/24/24 12/24/24 Unknown History Allergies Allergy/AdvReac Type Severity Reaction Status Date / Time acetaminophen (From Percocet) Allergy Intermediate ALGY-Hives Verified 06/02/24 10:35 oxycodone (From Percocet) Allergy Intermediate ALGY-Hives Verified 06/02/24 10:35 diphenhydramine (From Allergy Unknown Verified 12/24/24 16:32 Benadryl) PFSH Acute PFSH: Medical History Tobacco abuse Pre-diabetes No pertinent past medical history neghx: htn,dm,dvt/pe PCP: Ginger Cuevas at [facility] in [place] Hypothyroidism Surgical History H/O section 1991 1994 H/O tubal ligation (~1994) performed at the time of csection Family History Mother Lung cancer Father Pancreatic cancer Heart disease Hypertension Diabetes Grandmother Pancreatic cancer Colon cancer Diabetes Family/Other Breast cancer maternal aunt Grandfather Diabetes Denies family history of Ovarian cancer Prostate cancer Hyperlipidemia Uterine cancer Thyroid disease Stroke Social History Smoking and tobacco/nicotine status: current every day tobacco/nicotine user Vitals/I&O/Wt Last Vital Signs Temp 97.5 F L 12/25/24 04:00 Pulse 71 12/25/24 04:00 Resp 16 12/25/24 04:00 BP 90/52 12/25/24 04:00 Pulse Ox 92 12/25/24 04:00 O2 Del Method Room Air 12/25/24 04:00 12/24/24 12/24/24 12/25/24 14:59 22:59 06:59 Intake Total 2540 / 2540 621.25 / 3161.25 Balance 2540 / 2540 621.25 / 3161.25 Weight last 48 hrs Weight 112.4 kg Weight 112.491 kg Physical Exam Narrative: General: No acute distress, AO x3 HEENT: PERRLA, pupils bilaterally equal and reactive, pallors not present Chest: Normal vesicular breath sounds, no added sounds, equal good air entry bilaterally CVS: S1-S2 regular, no murmurs, no tachycardia, no gallops, no rubs Abdomen: Soft, mildly tender to palpation Neuro: No focal deficits, no facial deformity, AO x3, power 5/5 in all limbs Data 12/25/24 04:30 12/25/24 04:30 Micro: Microbiology 12/24/24 16:54 Blood Culture - Preliminary Blood SPECIMEN COLLECTED 12/24/24 16:52 Blood Culture - Preliminary Blood SPECIMEN COLLECTED Other data: Radiology Impressions Abdomen/Pelvis CT 12/24/24 17:37 IMPRESSION: 1. Severe diverticulitis of the mid sigmoid colon. No definitive perforation or adjacent abscess formation. 2. Small quantity of gas within the urinary bladder lumen, question recent catheterization. No identified fistula formation. 3. Hepatosplenomegaly. COMMENTS: Consistent with the [employer]'s Incidental Findings Committee white paper (J Am Eric Radiol 2018): Any incidental renal lesion less than 1 cm or classified as too small to characterize, or any incidental cystic renal lesion characterized as simple-appearing, is likely benign. No follow-up imaging is recommended for these lesions per consensus recommendations based on imaging criteria. Laboratory Results WBC 7.24 10^3/uL (3.29-11.43) 12/25/24 04:30 RBC 4.46 10^6/uL (3.85-5.65) 12/25/24 04:30 Hgb 12.20 g/dL (11.27-16.99) 12/25/24 04:30 Hct 37.8 % (36-47) 12/25/24 04:30 MCV 84.8 fl (85-98) L 12/25/24 04:30 MCH 27.4 pg (27-33) 12/25/24 04:30 MCHC 32.3 g/dL (30-55) 12/25/24 04:30 RDW 15.6 % (12.1-15.1) H 12/25/24 04:30 Plt Count 160 10^3/cmm (157-399) 12/25/24 04:30 MPV 10.9 fL (7.4-10.4) H 12/25/24 04:30 Neut % (Auto) 77.4 % 12/25/24 04:30 Lymph % (Auto) 12.8 % 12/25/24 04:30 [place] % (Auto) 7.2 % 12/25/24 04:30 Eos % (Auto) 1.5 % 12/25/24 04:30 Baso % (Auto) 0.4 % 12/25/24 04:30 Neut # (Auto) 5.60 10^3/uL (1.8-7.7) 12/25/24 04:30 Lymph # (Auto) 0.9 10^3/uL (0.8-4.8) 12/25/24 04:30 [place] # (Auto) 0.5 10^3/uL (0.2-0.9) 12/25/24 04:30 Eos # (Auto) 0.1 10^3/uL (0.0-0.8) 12/25/24 04:30 Baso # (Auto) 0.0 10^3/uL (0.0-0.1) 12/25/24 04:30 Nucleated RBC % (auto) 0 % 12/25/24 04:30 Nucleated RBCs # 0.0 /100WBC 12/25/24 04:30 Sodium 135 mmol/L (136-145) L 12/25/24 04:30 Potassium 3.6 mmol/L (3.5-5.1) 12/25/24 04:30 Chloride 101 mmol/L (98-107) 12/25/24 04:30 Carbon Dioxide 25 mmol/L (22-29) 12/25/24 04:30 Anion Gap 12.6 (5-19) 12/25/24 04:30 BUN 12 mg/dL (6-20) 12/25/24 04:30 Creatinine 0.8 mg/dL (0.5-0.9) 12/25/24 04:30 GFR Calculation 75.3 mL/min (90-130) L 12/25/24 04:30 Glucose 100 mg/dL (65-115) 12/25/24 04:30 Estimat Average Glucose 146 12/24/24 16:52 Hemoglobin A1c 6.7 % (4.0-6.0) H 12/24/24 16:52 Calculated Osmolality 280 mOsm/kg (285-295) L 12/25/24 04:30 Lactic Acid 0.7 mmol/L (0.5-2.2) 12/24/24 19:58 Calcium 8.0 mg/dL (8.5-10.5) L 12/25/24 04:30 Phosphorus 2.9 mg/dL (2.5-4.5) 12/25/24 04:30 Magnesium 2.0 mg/dL (1.7-2.3) 12/25/24 04:30 Iron 16 ug/dL (37-145) L 12/24/24 16:52 TIBC 254 mcg/dl 12/24/24 16:52 % Saturation 6.2 % (20-50) L 12/24/24 16:52 Unsat Iron Binding 238 ug/dL (112-347) 12/24/24 16:52 Total Bilirubin 0.6 mg/dL (0.15-1.2) 12/25/24 04:30 AST 49 U/L (0-32) H 12/25/24 04:30 ALT 77 U/L (0-33) H 12/25/24 04:30 Alkaline Phosphatase 238 U/L (35-105) H 12/25/24 04:30 C-Reactive Protein 192.7 mg/L (0.0-4.9) H 12/24/24 16:52 Total Protein 6.3 g/dL (6.6-8.7) L 12/25/24 04:30 Albumin 3.0 g/dL (3.5-5.2) L 12/25/24 04:30 Globulin 3.3 g/dL (1.3-4.6) 12/25/24 04:30 Triglycerides 126 mg/dL (0-150) 12/25/24 04:30 Cholesterol 92 mg/dL (0-200) 12/25/24 04:30 LDL Cholesterol, Calc 43 mg/dL (50-129) L 12/25/24 04:30 HDL Cholesterol 24 mg/dL (60-100) L 12/25/24 04:30 LDL/HDL Ratio 1.79 RATIO (0.00-3.22) 12/25/24 04:30 Cholesterol/HDL Ratio 3.83 mg/dL (0.0-4.40) 12/25/24 04:30 Lipase 12 U/L (13-60) L 12/24/24 16:52 Vitamin B12 509 pg/mL (232-1245) 12/24/24 16:52 Folate 10.4 ng/mL (4.8-37.3) 12/25/24 04:30 Procalcitonin 0.49 ng/mL (0-0.5) 12/25/24 04:30 TSH 4.65 uIU/mL (0.27-4.20) H 12/24/24 16:52 Urine Color Dark yellow (Yellow) A 12/24/24 16:38 Urine Appearance Cloudy (CLEAR) A 12/24/24 16:38 Urine pH 5.5 (5-7) 12/24/24 16:38 Ur Specific [place] 1.022 (1.005-1.030) 12/24/24 16:38 Urine Protein 2+ (Negative) A 12/24/24 16:38 Urine Glucose (UA) Negative (Normal) 12/24/24 16:38 Urine Ketones 2+ (Negative) H 12/24/24 16:38 Urine Blood 2+ (Negative) A 12/24/24 16:38 Urine Nitrate Negative (Negative) 12/24/24 16:38 Urine Bilirubin 1+ (Negative) H 12/24/24 16:38 Urine Urobilinogen 2.0 mg/dL (Negative) H 12/24/24 16:38 Ur Leukocyte Esterase 2+ (Negative) A 07/10/25 16:38 Urine RBC 0-2 /hpf (0-2) 12/24/24 16:38 Urine WBC 21-50 /hpf (0-5) H 12/24/24 16:38 Ur Squamous Epith Cells 0-5 /hpf (0-5) 12/24/24 16:38 Amorphous Sediment Not Reportable 12/24/24 16:38 Urine Bacteria None seen /hpf (NONE) 12/24/24 16:38 Hyaline Casts 1.21 /lpf 12/24/24 16:38 A&P Assessment and plan 1. Diverticulitis: 54-year-old lady presenting today with abdominal pain, fever and vomiting and found to have acute diverticulitis. She has been on outpatient antibiotic treatment with Augmentin without any significant relief in her symptoms. She has had poor p.o. intake and had 1 episode of vomiting this morning. Will admit to the hospital in view of acute diverticulitis with inability to tolerate p.o. antibiotics at this time Start IV piperacillin/tazobactam empirically and monitor for improvement. Does not currently have any diarrhea, however should she develop diarrhea will check C. difficile PCR and stool GI PCR. As needed morphine 2 mg IV for pain management. IV fluids normal saline at 75 cc an hour 2. Urinary tract infection: Positive leukocyte Estrace, 21-50 WBCs noted on UA. Urine culture ordered and pending Above antibiotic coverage to suffice No evidence of colovesical fistula on CT imaging. 3. Transaminitis: Elevated AST at 49, ALT at 77 and alkaline phosphatase at 238. CT imaging of the abdomen more than normal measuring liver without signs of cirrhosis. Gallbladder is surgically absent. No ductal dilatation noted. Check hepatitis panel. Plan: History of type 2 diabetes mellitus. Patient states she was recently diagnosed with diabetes and was started on metformin however she suffered from side effects of abdominal pain and diarrhea which led to discontinuation of the medication eventually. She is currently not on any medications and has been attempting to manage with lifestyle modification. Will check HbA1c. Hypothyroidism: Continue home dose DVT prophylaxis: Heparin 5000 subcutaneously every 12 hours Full code PDMP PDMP Reviewed: Not Reviewed Attestations Medical Necessity Statement*: Greater than 2 midnight stay is anticipated Coding Level of Care Code Acute Code for [facility] Diagnoses Diverticulitis K57.92 Urinary tract infection N39.0 Transaminitis R74.01
[2024-12-24 21:10] LABS: Estmated Average Glucose 146; Hemoglobin A1C 6.7 % (4.0-6.0)
[2024-12-24 22:15] VITALS: RESP 16
[2024-12-24] MEDS: morphine 4 mg/mL SDV 1 mL 2 MG IVP (22:15)
[2024-12-25] VITALS (7 sets, daily range): BP systolic 90–111; BP diastolic 50–76; PULSE 64–72; RESP 16–18; TEMP 36.4–36.9; O2SAT 92–96
[2024-12-25] MEDS: ondansetron 2 mg/ML SDV 2 mL 4 MG IVP (00:02)
[2024-12-25 00:24] LABS: Iron 16 ug/dL (37-145); Thyroid Stimulating Hormone 4.65 uIU/mL (0.27-4.20); Total Iron Binding Capacity 254 mcg/dl; Unsaturated Iron Binding 238 ug/dL (112-347); Vitamin B12 509 pg/mL (232-1245)
[2024-12-25] MEDS: piperacillin-tazobactam 3.375 GM in sodium chloride 0.9% (plus) 50 ML IV ×3 (04:35→21:04)
[2024-12-25 04:58] LABS: Hematocrit 37.8 % (36-47); Hemoglobin 12.20 g/dL (11.27-16.99); Mean Corpuscular HGB Conc 32.3 g/dL (30-55); Mean Corpuscular Hemoglobin 27.4 pg (27-33); Mean Corpuscular Volume 84.8 fl (85-98); Nucleated Red Blood Cells % 0 %; Platelet Count 160 10^3/cmm (157-399); Red Blood Count 4.46 10^6/uL (3.85-5.65); White Blood Count 7.24 10^3/uL (3.29-11.43)
[2024-12-25 05:24] LABS: Alanine Aminotransferase 77 U/L (0-33); Albumin Level 3.0 g/dL (3.5-5.2); Alkaline Phosphatase 238 U/L (35-105); Anion Gap 12.6 (5-19); Aspartate Amino Transferase 49 U/L (0-32); Blood Urea Nitrogen 12 mg/dL (6-20); Calcium 8.0 mg/dL (8.5-10.5); Carbon Dioxide 25 mmol/L (22-29); Chloride 101 mmol/L (98-107); Creatinine Clr Calc Pharmacy 93.8376; Globulin 3.3 g/dL (1.3-4.6); Glucose 100 mg/dL (65-115); Magnesium 2.0 mg/dL (1.7-2.3); Osmolality Calculated 280 mOsm/kg (285-295); Potassium 3.6 mmol/L (3.5-5.1); Sodium 135 mmol/L (136-145); Total Protein 6.3 g/dL (6.6-8.7)
[2024-12-25 05:30] LABS: Cholesterol 92 mg/dL (0-200); HDL Cholesterol 24 mg/dL (60-100); Triglycerides 126 mg/dL (0-150)
[2024-12-25 05:32] LABS: Procalcitonin 0.49 ng/mL (0-0.5)
[2024-12-25 07:07] LABS: Hepatitis A Antibody IgM Non-Reactive (Nonreactive); Hepatitis B Surface Antigen Non-Reactive (Nonreactive)
[2024-12-25] MEDS: heparin 5,000 unit/mL INJ 1 mL 5000 UNIT SUBCUT ×2 (09:04→21:06)
[2024-12-25 11:45] LABS: C.Diff PCR (Lab) NEGATIVE (Negative)
--- NOTE | 2024-12-25 15:43 | P.PN_ITS ---
Subjective 2 Subjective: 54-year-old female admitted wi th diverticulitis states that she went to see her PCP earlier that day thought to have viral gastroenteritis and bilateral otitis media for which she was treated with Augmentin. It was not till later that she had bilateral lateral abdominal pain in the lower quadrants and came to the ER and was diagnosed with diverticulitis. She admits that she had diverticulitis once before about 9 years ago but did not do her colonoscopy. She has family history of her dad and her grandfather both having pancreatic cancer and dying. She developed diabetes about 2 months ago and so now she is concerned more about her health. We discussed that pancreatic cancer pancreatitis and diabetes are all related to his pancreas but different illnesses. Her pancreas appeared normal on CT scan done for diverticulitis just yesterday so she does not show signs of pancreatic mass or pancreatitis. Patient states she is hungry and that her pain is somewhat improved. She is no longer nauseated Vitals/I&O/Wt Last Vital Signs Temp 97.9 F 12/25/24 12:47 Pulse 71 12/25/24 12:47 Resp 18 12/25/24 12:47 BP 110/76 12/25/24 12:47 Pulse Ox 95 12/25/24 12:47 O2 Del Method Room Air 12/25/24 04:00 12/25/24 12/25/24 12/25/24 06:59 14:59 22:59 Intake Total 621.25 / 3161.25 650 / 650 Balance 621.25 / 3161.25 650 / 650 Weight last 48 hrs Weight 114.305 kg Weight 112.4 kg Weight 112.491 kg Physical Exam 2 Narrative: General well-developed well-nourished morbidly obese female in no acute cardiopulmonary stress CV regular rate and rhythm Lungs clear to auscultation bilaterally Abdomen positive bowel tones soft obese mild tenderness left periumbilical is the most notable but still mild no rebound tenderness Calves no tenderness cords pretrip edema Mood and affect normal Data 12/25/24 04:30 12/25/24 04:30 Micro: Microbiology 12/25/24 10:15 Bacterial Antigens - Final Urine Kidney 12/25/24 10:25 Stool Lactoferrin - Final Stool Occult Blood (FIT) - Final 12/24/24 16:54 Blood Culture - Preliminary Blood SPECIMEN COLLECTED 07/10/25 16:52 Blood Culture - Preliminary Blood SPECIMEN COLLECTED A&P Assessment and plan 1. Diverticulitis: 54-year-old lady presenting today with abdominal pain, fever and vomiting and found to have acute diverticulitis. She has been on outpatient antibiotic treatment with Augmentin but only for 1 day without any significant relief in her symptoms. Admitted and started on IV piperacillin/tazobactam with some improvement. She had 4 loose stools and would like some thing milder than IV narcotics for pain control IV fluids normal saline at 75 cc an hour and she states she is making lots of urine Toradol and hydrocodone for pain 2. Urinary tract infection: Positive leukocyte Estrace, 21-50 WBCs noted on UA. Urine culture ordered and pending Above antibiotic coverage to suffice No evidence of colovesical fistula on CT imaging. 3. Transaminitis: Elevated AST at 49, ALT at 77 and alkaline phosphatase at 238. CT imaging of the abdomen more than normal measuring liver without signs of cirrhosis. Gallbladder is surgically absent. No ductal dilatation noted. Check hepatitis panel. 4. Morbid obesity with BMI of 45.0-49.9, adult: We discussed some of the risks and benefits of GLP-1 agonist. I think she would be a good candidate for semaglutide or tirzepatide due to diabetes and morbid obesity. She has a positive family history for pancreatic cancer in father and grandfather but GLP-1's do not really cause pancreatic cancer they cause pancreatitis. I discussed that she would have to think about these risks factors 5. Hypothyroidism: Continue home thyroid dose 6. Diabetes: Stop metformin consider GLP-1 agonist start glipizide. Sliding scale insulin coverage and start 1300-calorie ADA diet Plan: DVT prophylaxis: Heparin 5000 subcutaneously every 12 hours Full code PDMP PDMP Reviewed: Not Reviewed Attestations 2 Medical Necessity Statement*: Patient requires IV antibiotics and monitoring of advancing diet we will crier additional midnight loss Coding Level of Care Code 21016 Diagnoses Diverticulitis K57.92 Urinary tract infection N39.0 Transaminitis R74.01 Morbid obesity with BMI of 45.0-49.9, adult E66.01; Z68.42 Hypothyroidism E03.9 Diabetes E11.9 Time Spent (min) 38
[2024-12-25] MEDS: HYDROcodone-acetaminophen 5-325 mg Tablet 1 TAB PO (21:00)
[2024-12-25] MEDS: pantoprazole 40 mg SDV IVP (21:06)
[2024-12-26] VITALS: BP 100/60; PULSE 61; RESP 15; TEMP 36.6; O2SAT 92
[2024-12-26 04:00] VITALS: BP 103/70; PULSE 59; RESP 15; TEMP 36.5; O2SAT 94
[2024-12-26] MEDS: piperacillin-tazobactam 3.375 GM in sodium chloride 0.9% (plus) 50 ML IV (04:06)
[2024-12-26 04:10] LABS: Hematocrit 35.8 % (36-47); Hemoglobin 11.10 g/dL (11.27-16.99); Mean Corpuscular HGB Conc 31.0 g/dL (30-55); Mean Corpuscular Hemoglobin 26.6 pg (27-33); Mean Corpuscular Volume 85.9 fl (85-98); Nucleated Red Blood Cells % 0 %; Platelet Count 172 10^3/cmm (157-399); Red Blood Count 4.17 10^6/uL (3.85-5.65); White Blood Count 6.57 10^3/uL (3.29-11.43)
[2024-12-26 04:33] LABS: Estmated Average Glucose 143; Hemoglobin A1C 6.6 % (4.0-6.0)
[2024-12-26 04:36] LABS: Alanine Aminotransferase 105 U/L (0-33); Albumin Level 3.0 g/dL (3.5-5.2); Alkaline Phosphatase 294 U/L (35-105); Anion Gap 14.6 (5-19); Aspartate Amino Transferase 65 U/L (0-32); Blood Urea Nitrogen 17 mg/dL (6-20); Calcium 8.1 mg/dL (8.5-10.5); Carbon Dioxide 24 mmol/L (22-29); Chloride 106 mmol/L (98-107); Creatinine Clr Calc Pharmacy 94.8272; Globulin 2.9 g/dL (1.3-4.6); Glucose 88 mg/dL (65-115); Magnesium 2.2 mg/dL (1.7-2.3); Osmolality Calculated 293 mOsm/kg (285-295); Potassium 3.6 mmol/L (3.5-5.1); Sodium 141 mmol/L (136-145); Total Protein 5.9 g/dL (6.6-8.7)
[2024-12-26 06:00] VITALS: PULSE 69
[2024-12-26 08:55] VITALS: BP 113/77; PULSE 60; RESP 18; TEMP 36.4; O2SAT 93
--- NOTE | 2024-12-26 12:23 | PC.CHAP ---
Pastoral Care Encounter/Spiritual Assessment Type of Contact [] Declined battery container inspector visit [] Patient/Family/Request visit [] Outpatient visit [] Follow-up visit [] Physician referral [] Code/Alert [x] Routine visit [] Staff referral [] Actively dying [] Patient sleeping [] Family support [] [] Out of room [] Palliative care [] [x] Receiving care in room [] Pre-surgical visit [] Trauma [] Long length of stay [] ICU visit [] Other: Relational/Emotional Strength [] Patient feels connected with others/family/visitors/staff [] Distress [] Loneliness/isolation [] Abandonment Spirituality of Patient [] Person of [place] [] Attends Jew of their [place] [] Believes in Prayer [] Reads Bible or Amish materials [] There are Spiritual issues to be addressed Research Chemist Interventions [] Prayer [] Active listening [] Non-anxious presence [] Spiritual/emotional support [] Crisis/trauma care [] Spiritual counseling [] Bereavement support [] Provided bereavement packet [] Provided Bible/devotional materials [] Provided toy/stuffed animal, coloring book to patient or family member [] Provided Communion [] Anointing/[place] [] Salvation [] Completed spiritual assessment [] Other: Impact on Illness or Injury [] Angry [] Fearful [] Anxious [] Often cries [] Exhaustion [] Unable to work [] Unable to attend mandaen [] Unable to walk/stand [] Unable to read [] Unable to drive [] Unable to eat/drink [] Unable to sleep [] Unable to be with family [] Patient intubated [] Other: Summary Time spent with patient
[2024-12-26 13:12] VITALS: BP 114/74; PULSE 61; RESP 18; TEMP 36.4; O2SAT 96
--- NOTE | 2024-12-26 13:14 | PM.DCS ---
Discharge Providers Date of Admission: 12/24/24 20:05 Date of Discharge: December 26, 2024 Attending Provider at Admission: Dino Zamora MD Attending Provider at Discharge: Josh Mclean MD Consults: None Diagnoses at Discharge Discharge Diagnosis 1. Diverticulitis: Details from hospital stay: Severe sigmoid diverticulitis without perforation or abscess. Will finish 13-day course of antibiotics IV and oral 2. Urinary tract infection: Details from hospital stay: Pansensitive E. coli which will be covered by the Augmentin 3. Transaminitis: Details from hospital stay: Suspected due to obesity and fatty liver. Follow-up with your PCP and consider getting on GLP-1 agonist. I counseled the patient regarding goal of losing 2 to 3 pounds a week and starting calorie counting and exercise. Counseled patient no alcohol 4. Morbid obesity with BMI of 45.0-49.9, adult: Details from hospital stay: See above 5. Hypothyroidism: Details from hospital stay: Stable 6. Diabetes: Details from hospital stay: Blood sugars good with weight loss diet should continue to improve Reason for Visit Reason for Visit: fever,n,v,no bm for days, abd pain Brief History: Isadora Cervantes is a 54 year old female with a past medical history of diverticulitis with last episode 9 years ago. She presents to the emergency room today with, chief complaints of abdominal pain which has been ongoing for the last 4 to 5 days. Patient states that the pain started around Saturday in the epigastric area, she attributed this to having a viral gastroenteritis as she also had some sinus drainage at the time. She visited with her primary care provider and was given a prescription for Augmentin however her pain continued to get worse. She had 1 episode of vomiting this morning and developed a fever of 102 Fahrenheit therefore came into the emergency room. She has not had an appetite. No hematemesis or melena. She is currently constipated and last bowel movement was 2 days ago. She has not had any diarrhea during the course of this illness. CT of the abdomen and pelvis performed today showing severe diverticulitis of the colon. No definite perforation or abscess was noted. She was recommended to undergo a colonoscopy after her last episode 9 years ago but did not get 1. There is no known history of ulcerative colitis or Crohn's disease. Hospital Course Hospital Course Pt was treated with IVF and IV Zosyn. She resolved nausea and pain but still mildly tender without rebound. She is tolerated diet and wants to go home. Pt is accompanied by her Ian. Patient is morbidly obese with enlarged liver and elevated enzymes likely fatty liver. She does not drink much alcohol. She is interested in GLP 1/GIP agonist but is concerned about family history of pancreatic cancer. Her CT scan showed her pancreas to show no signs of mass or inflammation. Hemoglobin A1c was 6.6. Glucose 146. LFTs mildly elevated with AST 65 ALT 105 alk phos 294. UA 21-50 white cells with E. coli pansensitive except for Unasyn Physical Exam Narrative: General well-developed well-nourished well-nourished morbidly obese female in no acute cardiopulmonary stress CV regular rate and rhythm Lungs clear to auscultation bilaterally Abdomen positive bowel tones soft mild left periumbilical tenderness no rebound tenderness Calves no tenderness cords pretrip edema Discharge Data Studies Completed and Pending Completed Studies During Hospitalization Category Date Time Status CT abdomen pelvis w con* [id number] Stat Cat Scan 12/24/24 17:37 Completed Pending at discharge Category Date Time Status Blood Culture Stat Lab 12/24/24 16:54 Results Complete Blood Count w/Auto AM LABS Lab 12/27/24 04:00 Ordered Comprehensive Metabolic Panel AM LABS Lab 12/27/24 04:00 Ordered Magnesium AM LABS Lab 12/27/24 04:00 Ordered OVA and Parasites, Conc and PE Routine Lab 12/24/24 19:41 Received Phosphorus AM LABS Lab 12/27/24 04:00 Ordered Salmonella / Shigella / Campy Routine Lab 12/24/24 19:41 Received Radiology Impressions Abdomen/Pelvis CT 12/24/24 17:37 IMPRESSION: 1. Severe diverticulitis of the mid sigmoid colon. No definitive perforation or adjacent abscess formation. 2. Small quantity of gas within the urinary bladder lumen, question recent catheterization. No identified fistula formation. 3. Hepatosplenomegaly. COMMENTS: Consistent with the [employer]'s Incidental Findings Committee white paper (J Am Eric Radiol 2018): Any incidental renal lesion less than 1 cm or classified as too small to characterize, or any incidental cystic renal lesion characterized as simple-appearing, is likely benign. No follow-up imaging is recommended for these lesions per consensus recommendations based on imaging criteria. Laboratory Results WBC 6.57 10^3/uL (3.29-11.43) 12/26/24 03:51 RBC 4.17 10^6/uL (3.85-5.65) 12/26/24 03:51 Hgb 11.10 g/dL (11.27-16.99) L 12/26/24 03:51 Hct 35.8 % (36-47) L 12/26/24 03:51 MCV 85.9 fl (85-98) 12/26/24 03:51 MCH 26.6 pg (27-33) L 12/26/24 03:51 MCHC 31.0 g/dL (30-55) 12/26/24 03:51 RDW 15.8 % (12.1-15.1) H 12/26/24 03:51 Plt Count 172 10^3/cmm (157-399) 12/26/24 03:51 MPV 11.3 fL (7.4-10.4) H 12/26/24 03:51 Neut % (Auto) 67.6 % 12/26/24 03:51 Lymph % (Auto) 17.5 % 12/26/24 03:51 [place] % (Auto) 9.1 % 12/26/24 03:51 Eos % (Auto) 4.4 % 12/26/24 03:51 Baso % (Auto) 0.6 % 12/26/24 03:51 Neut # (Auto) 4.44 10^3/uL (1.8-7.7) 12/26/24 03:51 Lymph # (Auto) 1.2 10^3/uL (0.8-4.8) 12/26/24 03:51 [place] # (Auto) 0.6 10^3/uL (0.2-0.9) 12/26/24 03:51 Eos # (Auto) 0.3 10^3/uL (0.0-0.8) 12/26/24 03:51 Baso # (Auto) 0.0 10^3/uL (0.0-0.1) 12/26/24 03:51 Nucleated RBC % (auto) 0 % 12/26/24 03:51 Nucleated RBCs # 0.0 /100WBC 12/26/24 03:51 Sodium 141 mmol/L (136-145) 12/26/24 03:51 Potassium 3.6 mmol/L (3.5-5.1) 12/26/24 03:51 Chloride 106 mmol/L (98-107) 12/26/24 03:51 Carbon Dioxide 24 mmol/L (22-29) 12/26/24 03:51 Anion Gap 14.6 (5-19) 12/26/24 03:51 BUN 17 mg/dL (6-20) 12/26/24 03:51 Creatinine 0.8 mg/dL (0.5-0.9) 12/26/24 03:51 GFR Calculation 75.3 mL/min (90-130) L 12/26/24 03:51 Glucose 88 mg/dL (65-115) 12/26/24 03:51 Estimat Average Glucose 143 12/26/24 03:51 Hemoglobin A1c 6.6 % (4.0-6.0) H 12/26/24 03:51 Calculated Osmolality 293 mOsm/kg (285-295) 12/26/24 03:51 Lactic Acid 0.7 mmol/L (0.5-2.2) 12/24/24 19:58 Calcium 8.1 mg/dL (8.5-10.5) L 12/26/24 03:51 Phosphorus 3.4 mg/dL (2.5-4.5) 12/26/24 03:51 Magnesium 2.2 mg/dL (1.7-2.3) 12/26/24 03:51 Iron 16 ug/dL (37-145) L 12/24/24 16:52 TIBC 254 mcg/dl 12/24/24 16:52 % Saturation 6.2 % (20-50) L 12/24/24 16:52 Unsat Iron Binding 238 ug/dL (112-347) 12/24/24 16:52 Total Bilirubin 0.4 mg/dL (0.15-1.2) 12/26/24 03:51 AST 65 U/L (0-32) H 12/26/24 03:51 ALT 105 U/L (0-33) H 12/26/24 03:51 Alkaline Phosphatase 294 U/L (35-105) H 12/26/24 03:51 C-Reactive Protein 192.7 mg/L (0.0-4.9) H 12/24/24 16:52 Total Protein 5.9 g/dL (6.6-8.7) L 12/26/24 03:51 Albumin 3.0 g/dL (3.5-5.2) L 12/26/24 03:51 Globulin 2.9 g/dL (1.3-4.6) 12/26/24 03:51 Triglycerides 126 mg/dL (0-150) 12/25/24 04:30 Cholesterol 92 mg/dL (0-200) 12/25/24 04:30 LDL Cholesterol, Calc 43 mg/dL (50-129) L 12/25/24 04:30 HDL Cholesterol 24 mg/dL (60-100) L 12/25/24 04:30 LDL/HDL Ratio 1.79 RATIO (0.00-3.22) 12/25/24 04:30 Cholesterol/HDL Ratio 3.83 mg/dL (0.0-4.40) 12/25/24 04:30 Lipase 12 U/L (13-60) L 12/24/24 16:52 Vitamin B12 509 pg/mL (232-1245) 12/24/24 16:52 Folate 10.4 ng/mL (4.8-37.3) 12/25/24 04:30 Procalcitonin 0.49 ng/mL (0-0.5) 12/25/24 04:30 TSH 4.65 uIU/mL (0.27-4.20) H 12/24/24 16:52 Urine Color Dark yellow (Yellow) A 12/24/24 16:38 Urine Appearance Cloudy (CLEAR) A 12/24/24 16:38 Urine pH 5.5 (5-7) 12/24/24 16:38 Ur Specific Chestnut 1.022 (1.005-1.030) 12/24/24 16:38 Urine Protein 2+ (Negative) A 12/24/24 16:38 Urine Glucose (UA) Negative (Normal) 12/24/24 16:38 Urine Ketones 2+ (Negative) H 12/24/24 16:38 Urine Blood 2+ (Negative) A 12/24/24 16:38 Urine Nitrate Negative (Negative) 12/24/24 16:38 Urine Bilirubin 1+ (Negative) H 12/24/24 16:38 Urine Urobilinogen 2.0 mg/dL (Negative) H 12/24/24 16:38 Ur Leukocyte Esterase 2+ (Negative) A 12/24/24 16:38 Urine RBC 0-2 /hpf (0-2) 12/24/24 16:38 Urine WBC 21-50 /hpf (0-5) H 12/24/24 16:38 Ur Squamous Epith Cells 0-5 /hpf (0-5) 12/24/24 16:38 Amorphous Sediment Not Reportable 12/24/24 16:38 Urine Bacteria None seen /hpf (NONE) 12/24/24 16:38 Hyaline Casts 1.21 /lpf 12/24/24 16:38 C. difficile (PCR) Negative (Negative) 12/25/24 10:25 Hepatitis A IgM Ab Non-reactive (Nonreactive) 12/25/24 04:30 Hep Bs Antigen Non-reactive (Nonreactive) 12/25/24 04:30 Hep Bs Antibody < 3.5 (11.5-1000) L 12/25/24 04:30 Hep B Core Total Ab Non-reactive (Nonreactive) 12/25/24 04:30 Hepatitis C Antibody Non-reactive (Nonreactive) 12/25/24 04:[address] Abd/Pel: Radiologist's impression: 1. Severe diverticulitis of the mid sigmoid colon. No definitive perforation or adjacent abscess formation. 2. Small quantity of gas within the urinary bladder lumen, question recent catheterization. No identified fistula formation. 3. Hepatosplenomegaly. Vitals Last Vital Signs Temp 97.6 F 12/26/24 13:12 Pulse 61 12/26/24 13:12 Resp 18 12/26/24 13:12 BP 114/74 12/26/24 13:12 Pulse Ox 96 12/26/24 13:12 O2 Del Method Room Air 12/26/24 04:00 Discharge Plan Discharge Patient Disposition: Home Condition: Stable Prescriptions: New docusate sodium 100 mg Capsule 100 mg PO BID Qty: 120 0RF magnesium hydroxide [Milk of Magnesia] 400 mg/5 mL Suspension 30 ml PO DAILY PRN (Reason: Constipation (see protocol)) Qty: 355 0RF amoxicillin-pot clavulanate 875-125 mg tablet 1 tab PO Q8H Qty: 15 0RF VSL#3 112.5 billion cell capsule 1 cap PO DAILY Qty: 30 0RF Continued metformin 500 mg tablet 500 mg PO BIDWM levothyroxine 25 mcg tablet 25 mcg PO DAILY Discontinued amoxicillin-pot clavulanate 500-125 mg tablet 1 tab PO BID Discharge Order = DC NOW: Discharge Order (Routine); Ordered 12/26/24 Ordered By: Josh Mclean Referrals: Broderick Rodriguez MD [Staff Physician, Family Practice] - 4-7 days Referral Note: We have notified Dr. Rodriguez's clinic of the need for a follow-up appointment to be scheduled. If you have not heard from them within the next 2 business days, please call them directly. Discharge Diet: Diabetic Discharge Activity: Increase activity as tolerated Patient Instructions: Opioid Safety, Patient Portal & Luis Instructions Activity Restrictions/Additional Instructions: Eat small portions of a diabetic diet but drink plenty of caloric free fluids as desired Over the next 5 days resume a caloric intake of about 1800 dayana diabetic diet for goal weight loss of 3 pounds a week. If losing more than 3 pounds a week liberalize the number of calories you eat per day. If losing less than 2 pounds per week cut back your calories a little bit until you are losing 2 pounds a week Talk with your primary care physician about being on GLP-1 agonist such as semaglutide or tirzepatide for diabetes and weight loss. Your pancreas looked healthy on CT scan performed this admission without signs of pancreatitis or pancreatic cancer You have a fatty liver based on labs but should also see a surgeon or mineral technologist and have a colonoscopy once your acute diverticulitis infection has resolved to make sure that there is not other disease or mass in your colon. Increase large muscle exercise such as push-ups sit ups and walking a mile a day to promote weight loss and not lose muscle especially if you start taking a GLP-1 agonist Your UTI was E. coli and will be covered by the Augmentin that you take for diverticulitis. The diverticulitis course of antibiotics will be 1 tablet 3 times a day of the prescription that I have given you. Then continue with the 500 mg Augmentin prescription that you already have on hand and take that 3 times a day until gone Follow-up with PCP next week Discharge Attestations Time Spent in Discharge Care*: greater than 30 min Quality Metrics Clinical Quality Measures [ No reported AMI, CVA or VTE this stay] Coding Level of Care Code 30049 Diagnoses Diverticulitis K57.92 Urinary tract infection N39.0 Transaminitis R74.01 Morbid obesity with BMI of 45.0-49.9, adult E66.01; Z68.42 Hypothyroidism E03.9 Diabetes E11.9 Time Spent (min) 45
== END 2024-12-26 14:55 | disposition home or self-care (01) | DRG 392 ==
LOC: ER 19:59 → MEDSURG 20:06
PROVIDERS: Student in an Organized Health Care Education/Training Program; Admitting Provider Student in an Organized Health Care Education/Training Program; Emergency Provider Emergency Medicine; Visit Provider Internal Medicine
DX: K57.32 Diverticulitis of large intestine without perforation or abscess without bleeding (principal); N39.0 Urinary tract infection, site not specified; Z68.42 Body mass index [BMI] 45.0-49.9, adult; B96.20 Unspecified Escherichia coli [E. coli] as the cause of diseases classified elsewhere; K76.0 Fatty (change of) liver, not elsewhere classified; E66.01 Morbid (severe) obesity due to excess calories; E03.9 Hypothyroidism, unspecified; E11.9 Type 2 diabetes mellitus without complications; K59.00 Constipation, unspecified; F10.90 Alcohol use, unspecified, uncomplicated; F17.200 Nicotine dependence, unspecified, uncomplicated; Z79.84 Long term (current) use of oral hypoglycemic drugs
CPT/HCPCS: 36415; 74177; 80053; 80061; 81001; 82274; 82607; 82746; 83036; 83540; 83550; 83605; 83630; 83690; 83735; 84100; 84145; 84443; 85025; 86140; 86403; 86705; 86706; 86709; 86803; 87040; 87045; 87086; 87177; 87209; 87340; 87427; 87449; 87493; 94664; 96365; 96367; 96372; 96375; 99285; J0692; J0744; J1171; J1644; J1885; J2270; J2405; J2470; J2543; J3490; J7030; J9999